=== PATIENT | female | born 1985 | race Caucasian/White ===

== ENCOUNTER 2016-10-25 16:28 | Emergency (ER) | payer OTHER ==
[~2016-10-25] VITALS: Ht 162.6 cm; Wt 85.6 kg
[~2016-10-25 16:28] MED LIST: AMPH20TA2 PO; GABA-112 PO; PRM625 PO; PRT40 PO; RXC5 PO; VTMD PO
[2016-10-25 16:47] VITALS: TEMP 36.8; Ht 162.6 cm; Wt 85.6 kg
--- NOTE | 2016-10-25 17:01 | EMERGENCY ROOM VISIT NOTE ---
History Report prepared by Deepak: Lesley Nix Under the Supervision of: Dr. Erin De La Vega M.D. First contact with patient: 16:56 Chief Complaint: RESPIRATORY PROBLEMS Stated Complaint: HARD TIME WALKING, HURT TO BREATH, CHILLS Nursing Triage Summary: PT VERBALIZES YESTERDAY SHE DEVELOPED A RASH ALL OVER HER FACE, CHILLS, LETHARGY, GENERALIZED PAIN, PAIN 9/10 SPECIFICALLY IN HER HIPS AND HER HEAD, CP AND SOB. PT WENT TO [facility] YESTERDAY AND HAD BLOODWORK DONE WITH RESULTING ELEVATED LIVER ENZYMES, WAS TOLD TO F/U WITH PCP. PT ALSO HAD CT AND ULTRASOUND BUT IS UNSURE WHAT SPECIFICALLY THE IMAGING WAS FOR, BUT WAS TOLD ALL RESULTS WERE NEGATIVE. PT PRESENTS TODAY BECAUSE SHE IS UNABLE TO GET APPT WITH PCP AND FEELS WORSE. History of Present Illness The patient is a 31 year old female who presents to the Emergency Room with complaints of constant shortness of breath beginning a few days prior to arrival. The patient was seen at [facility] yesterday and had a CT and Ultrasound done. She notes that she broke out in a rash on her face. She is also experiencing chest pain, chills, and body aches. The patient denies chance of . Source of History: patient Onset: few days ACUTE CARE CLINICAL NURSE SPECIALIST Position: other (global) Quality: other (shortness of breath) Timing: constant Associated Symptoms: + chest pain, + chills Note: Patient has been experiencing body aches. Review of Systems See HPI for pertinent positives & negatives. A total of 10 systems reviewed and were otherwise negative. Past Medical & Surgical Medical Problems: (1) Acute gastroenteritis (2) Attention-Deficit Hyperactivity Disorder, Unspecified Type (3) Demyelinating Disease Of Central Nervous System, Unspecified (4) Hypothyroidism Nos (5) Tobacco Use Disorder Family History Diabetes mellitus FH: cancer Hypertension Social History Smoking Status: Never Smoker Alcohol Use: none Drug Use: none Marital Status: single Housing Status: lives with family Occupation Status: employed Current/Historical Medications Scheduled Amphetamine-Dextroamphetamine 20MG (Adderall 20MG), 20 MG PO BID Bupropion HCl (Bupropion HCl Sr), 150 MG PO DAILY Doxycycline Monohydrate (Monodox), 100 MG PO BID Estrogens, Conjugated (Premarin), 0.625 MG PO QAM Ondasetron Odt (Zofran Odt), 4 MG SL Q6H Scheduled PRN Docusate Sodium (Docqlace), 100 MG PO BID PRN for Constipation Allergies Coded Allergies: Acetaminophen (Verified Allergy, Unknown, SWELLING, 08/13/16) Codeine (Verified Allergy, Unknown, SWELLING, 08/13/16) Morphine (Verified Allergy, Unknown, swelling, 08/13/16) Physical Exam Vital Signs Date Time Temp Pulse Resp B/P Pulse Ox O2 Delivery O2 Flow Rate FiO2 10/25/16 20:28 89 18 122/71 98 Room Air 10/25/16 18:31 86 16 124/92 99 Room Air 10/25/16 16:47 99 Room Air 10/25/16 16:47 36.8 98 18 128/84 99 Room Air Physical Exam CONSTITUTIONAL: Appears mildly uncomfortable. HEENT: No icterus, moist mucous membranes NECK: No meningismus, trachea is midline. CARDIOVASCULAR: Regular rate, normal perfusion RESPIRATORY: Unlabored breathing. Clear to auscultation. GASTROINTESTINAL: Non-tender GENITOURINARY: No flank tenderness MUSCULOSKELETAL: Full range of motion NEUROLOGIC: No acute gross focal deficits. PSYCHIATRIC: Normal affect SKIN: Normal for ethnicity. Mild acne to face. Medical Decision & Procedures Laboratory Results 10/25/16 17:50 Red Blood Count 4.48, Mean Corpuscular Volume 90.8, Mean Corpuscular Hemoglobin 31.9, Mean Corpuscular Hemoglobin Concent 35.1, Mean Platelet Volume 9.7, Neutrophils (%) (Auto) 75.6, Lymphocytes (%) (Auto) 16.5, Monocytes (%) (Auto) 6.3, Eosinophils (%) (Auto) 1.2, Basophils (%) (Auto) 0.2, Neutrophils # (Auto) 4.60, Lymphocytes # (Auto) 1.00, Monocytes # (Auto) 0.38, Eosinophils # (Auto) 0.07, Basophils # (Auto) 0.01 10/25/16 17:50 Test 10/25/16 17:50 10/25/16 19:00 White Blood Count 6.07 K/uL (4.8-10.8) Red Blood Count 4.48 M/uL (4.2-5.4) Hemoglobin 14.3 g/dL (12.0-16.0) Hematocrit 40.7 % (37-47) Mean Corpuscular Volume 90.8 fL (80-100) Mean Corpuscular Hemoglobin 31.9 pg (25-34) Mean Corpuscular Hemoglobin Concent 35.1 g/dl (32-36) Platelet Count 238 K/uL (130-400) Mean Platelet Volume 9.7 fL (7.4-10.4) Neutrophils (%) (Auto) 75.6 % Lymphocytes (%) (Auto) 16.5 % Monocytes (%) (Auto) 6.3 % Eosinophils (%) (Auto) 1.2 % Basophils (%) (Auto) 0.2 % Neutrophils # (Auto) 4.60 K/uL (1.4-6.5) Lymphocytes # (Auto) 1.00 K/uL (1.2-3.4) Monocytes # (Auto) 0.38 K/uL (0.11-0.59) Eosinophils # (Auto) 0.07 K/uL (0-0.5) Basophils # (Auto) 0.01 K/uL (0-0.2) RDW Standard Deviation 42.6 fL (36.4-46.3) RDW Coefficient of Variation 12.9 % (11.5-14.5) Immature Granulocyte % (Auto) 0.2 % Immature Granulocyte # (Auto) 0.01 K/uL (0.00-0.02) D-Dimer 340 ug/L FEU (0-500) Anion Gap 8.0 mmol/L (3-11) Est Creatinine Clear Calc Drug Dose 105.6 ml/min Estimated GFR () 111.4 Estimated GFR (Non- 96.1 BUN/Creatinine Ratio 10.7 (10-20) Calcium Level 8.9 mg/dl (8.5-10.1) Total Creatine Kinase 46 U/L (26-192) C-Reactive Protein 0.70 mg/dl (0-0.29) Lipase 177 U/L (73-393) Procalcitonin < 0.05 ng/mL (0-0.5) Human Chorionic Gonadotropin, Qual NEG (NEG) Lyme Disease IgG Antibody NEG (NEG) Lyme Disease IgM Antibody NEG (NEG) Urine Color YELLOW Urine Appearance CLOUDY (CLEAR) Urine pH 8.0 (4.5-7.5) Urine Specific [place] 1.009 (1.000-1.030) Urine Protein NEG (NEG) Urine Glucose (UA) NEG (NEG) Urine Ketones NEG (NEG) Urine Occult Blood NEG (NEG) Urine Nitrite NEG (NEG) Urine Bilirubin NEG (NEG) Urine Urobilinogen NEG (NEG) Urine Leukocyte Esterase NEG (NEG) Urine WBC (Auto) 0 /hpf (0-5) Urine RBC (Auto) 0-4 /hpf (0-4) Urine Hyaline Casts (Auto) 0 /lpf (0-5) Urine Epithelial Cells (Auto) 5-10 /lpf (0-5) Urine Bacteria (Auto) NEG (NEG) Urine Opiates Screen POS (NEG) Urine Methadone, Qualitative NEG (NEG) Urine Barbiturates NEG (NEG) Urine Phencyclidine (PCP) Level NEG (NEG) Ur Amphetamine/Methamphetamine NEG (NEG) MDMA (Ecstasy) Screen NEG (NEG) Urine Benzodiazepines Screen NEG (NEG) Urine Cocaine Metabolite NEG (NEG) Urine Marijuana (THC) NEG (NEG) Labs reviewed by ED physician. Medications Administered Medications (Trade) Dose Ordered Sig/Antoni Route Start Time Stop Time Status Last Admin Dose Admin Doxycycline Hyclate (Vibramycin Cap) 100 mg NOW STAT PO 10/25/16 17:48 10/25/16 17:49 DC 10/25/16 18:23 100 MG Acetaminophen (Tylenol Tab) 1,000 mg NOW STAT PO 10/25/16 19:42 10/25/16 19:45 DC 10/25/16 19:56 1,000 MG Ketorolac Tromethamine (Toradol Inj) 60 mg NOW STAT IM 10/25/16 19:42 10/25/16 19:45 DC 10/25/16 19:56 60 MG Ondansetron HCl (Zofran Odt) 4 mg NOW STAT PO 10/25/16 19:42 10/25/16 19:45 DC 10/25/16 19:56 4 MG ECG Indication: SOB/dyspnea Rate (beats per minute): 93 Rhythm: normal sinus Findings: no ectopy, other (normal axis, normal ST segments) ED Course 1658: Past medical records reviewed. The patient was evaluated in room C9. A complete history and physical examination was performed. 1747: Vibramycin Cap 100 mg PO. 1941: Zofran Odt 4 mg PO, Toradol Inj 60 mg IM, Tylenol Tab 1,000 mg PO, Zofran Tab 4 mg PO, Zofran ODT 4 mg Home pack 1 homepack PO. 2051: Upon reexamination the patient is hemodynamically stable. I discussed results and treatment plan with the patient. She verbalizes agreement and understanding. The patient is ready for discharge. Medical Decision Differential diagnoses include but are not limited to; systemic inflammatory process, myocelitis, acne, dysrhythmia, PE. 31-year-old presented to the emergency department for evaluation of diffuse myalgias and arthralgias all over her body without known diagnosis despite previous evaluation with physician. She also like a rash of her bilateral face evaluated which consistent with either acne or possibly MRSA less likely. Review of systems negative for focal complaints although demeanor interactions may be concerning for potential substance abuse. Urine was noted positive for opiates and patient denies any issues along these lines and declines any assistance with these concerns. She was given a Zofran prescription for nausea and doxycycline to treat the facial rash. She understands to follow-up with her doctor. Impression Primary Impression: Facial rash Scribe Attestation The scribe's documentation has been prepared under my direction and personally reviewed by me in its entirety. I confirm that the note above accurately reflects all work, treatment, procedures, and medical decision making performed by me. Departure Information Dispostion Home / Self-Care Prescriptions Ondasetron Odt (ZOFRAN ODT) 4 Mg Tab 4 MG SL Q6H for Nausea, #20 TAB Prov: Erin De La Vega MD 10/25/16 Doxycycline Monohydrate (Monodox) 100 Mg Cap 100 MG PO BID for 14 Days, #28 CAP Prov: Erin De La Vega MD 10/25/16 Referrals No Doctor, Assigned (PCP) Forms HOME CARE DOCUMENTATION FORM, IMPORTANT VISIT INFORMATION, WORK / SCHOOL INSTRUCTIONS Patient Instructions Acne, My [facility]
[2016-10-25] MEDS ORDERED: DOXYCYCLINE HYCLATE 100 MG CAP PO STA (17:48)
[2016-10-25 17:59] LABS: BASO % 0.2 %; BASO ABS # 0.01 K/uL (0-0.2); COMPLETE YES; EOS % 1.2 %; HEMATOCRIT 40.7 % (37-47); IG% 0.2 %; LYMPH % 16.5 %; MEAN CELL VOLUME 90.8 fL (80-100); MEAN CORPUSCULAR HEMOGLOBIN 31.9 pg (25-34); MEAN CORPUSCULAR HGB CONC 35.1 g/dl (32-36); MEAN PLATELET VOLUME 9.7 fL (7.4-10.4); MONO % 6.3 %; NEUT % 75.6 %; PLATELET COUNT 238 K/uL (130-400); RED BLOOD COUNT 4.48 M/uL (4.2-5.4); WHITE BLOOD COUNT 6.07 K/uL (4.8-10.8)
[2016-10-25] MEDS ORDERED: DOCU100C22 PO (18:03)
[2016-10-25] MEDS ORDERED: WLLSR150 PO (18:03)
[2016-10-25 18:19] LABS: BUN/CREATININE RATIO 10.7 (10-20); C-REACTIVE PROTEIN 0.7 mg/dl (0-0.29); CALCIUM 8.9 mg/dl (8.5-10.1); CREATININE 0.81 mg/dl (0.60-1.20); POTASSIUM 3.4 mmol/L (3.5-5.1)
[2016-10-25 18:27] LABS: PREG INTERNAL NEGATIVE QC NEG CLEAR BACKGROUND; PREG INTERNAL POSITIVE QC POS CONTROL LINE
[2016-10-25 18:51] LABS: PROCALCITONIN < 0.05 ng/mL (0-0.5)
[2016-10-25 19:16] LABS: URINE APPEARANCE CLOUDY (CLEAR); URINE BILIRUBIN NEG (NEG); URINE COLOR YELLOW; URINE NITRITE NEG (NEG); URINE SPECIFIC GRAVITY 1.009 (1.000-1.030); UROBILINOGEN NEG (NEG)
[2016-10-25 19:21] LABS: MANUAL MICROSCOPIC REQUIRED? NO; REVIEW REQ? NO
[2016-10-25 19:24] LABS: BENZODIAZEPINE, URINE NEG (NEG); COCAINE,URINE NEG (NEG); PHENCYCLIDINE, URINE NEG (NEG)
[2016-10-25] MEDS ORDERED: ONDANSETRON 4MG OD TAB PO STA (19:42)
[2016-10-25] MEDS ORDERED: KETOROLAC TROMETHAMINE 30 MG/ML VIAL IM STA (19:42)
[2016-10-25] MEDS ORDERED: ACETAMINOPHEN 500 MG TAB PO STA (19:42)
[2016-10-25 19:43] LABS: LYME DISEASE AB IGG NEG (NEG); LYME DISEASE AB IGM NEG (NEG)
[2016-10-25] MEDS ORDERED: ONDANSETRON HOME PACK 4MG OD TAB PO ONE (19:45)
[2016-10-25] MEDS ORDERED: ONDANSETRON 4 MG TAB PO PRN (19:45)
[2016-10-25 20:28] VITALS: BP 122/71; PULSE 89; O2SAT 98
[2016-10-25] MEDS ORDERED: DOXY100C76 PO (20:52)
[2016-10-25] MEDS ORDERED: ONDA4TAB10 SL (20:52)
[2016-10-28 01:09] LABS: COD UR NEGATIVE NG/ML (CUTOFF=50); HYDROCOD UR 132 NG/ML (CUTOFF=50); HYDROMOR UR 67 NG/ML (CUTOFF=50); MORPHINE UR NEGATIVE NG/ML (CUTOFF=50); NORHYDROCODONE CONF UR 669 NG/ML (CUTOFF=50); OXYMORPH UR NEGATIVE NG/ML (CUTOFF=50)
== END 2016-10-25 21:01 | disposition home or self-care (01) ==
LOC: C.EDB 16:30 → C.EDC 21:01
DX: R21 Rash and other nonspecific skin eruption (principal); E03.9 Hypothyroidism, unspecified; F90.9 Attention-deficit hyperactivity disorder, unspecified type; F17.200 Nicotine dependence, unspecified, uncomplicated; Z87.19 Personal history of other diseases of the digestive system; Z79.899 Other long term (current) drug therapy; Z88.5 Allergy status to narcotic agent; Z88.6 Allergy status to analgesic agent; Z83.3 Family history of diabetes mellitus; Z80.9 Family history of malignant neoplasm, unspecified; Z82.49 Family history of ischemic heart disease and other diseases of the circulatory system

== ENCOUNTER 2017-03-09 20:43 | Emergency (ER) | payer OTHER ==
[~2017-03-09] VITALS: Ht 162.6 cm; Wt 77.0 kg
[~2017-03-09 20:43] MED LIST changes: +DOCU100C22 PO; -GABA-112 PO; +ONDA4TAB10 SL; -PRT40 PO; -RXC5 PO; -VTMD PO; +WLLSR150 PO
[2017-03-09 20:46] VITALS: Ht 162.6 cm; Wt 77.0 kg
[2017-03-09] MEDS ORDERED: KETOROLAC TROMETHAMINE 30 MG/ML VIAL IV STA (21:25)
[2017-03-09] MEDS ORDERED: METOCLOPRAMIDE HCL INJ 5 MG/ML 2 ML VIAL IV STA (21:25)
[2017-03-09] MEDS ORDERED: SODIUM CHLORIDE 0.9% 1000ML 1,000 ML IV STA ×2 (21:25)
[2017-03-09] MEDS ORDERED: DiphenhydrAMINE HCL 50 MG/ML VIAL IV STA (21:25)
[2017-03-09 21:32] LABS: BASO % 0.4 %; BASO ABS # 0.04 K/uL (0-0.2); COMPLETE YES; EOS % 0.5 %; HEMATOCRIT 42.8 % (37-47); IG% 0.4 %; LYMPH % 25.4 %; LYMPH ABS # 2.87 K/uL (1.2-3.4); MEAN CORPUSCULAR HEMOGLOBIN 31.8 pg (25-34); MEAN CORPUSCULAR HGB CONC 34.6 g/dl (32-36); MEAN PLATELET VOLUME 9.4 fL (7.4-10.4); MONO % 5.3 %; PLATELET COUNT 270 K/uL (130-400); RED BLOOD COUNT 4.65 M/uL (4.2-5.4); WHITE BLOOD COUNT 11.32 K/uL (4.8-10.8)
[2017-03-09 21:48] LABS: BUN/CREATININE RATIO 15.6 (10-20); CREATININE 1.1 mg/dl (0.60-1.20); POTASSIUM 3.4 mmol/L (3.5-5.1)
[2017-03-09 21:54] LABS: SULFASALICYLIC ACID NEG (NEG); URINE SPECIFIC GRAVITY 1.016 (1.000-1.030)
[2017-03-09 22:02] LABS: MANUAL MICROSCOPIC REQUIRED? YES; URINE APPEARANCE CLOUDY (CLEAR); ZZUR CULT IF INDIC CLEAN CATCH YES
[2017-03-09 22:03] LABS: URINE COLOR ORANGE
[2017-03-09 22:06] LABS: REVIEW REQ? YES
[2017-03-09 22:08] LABS: URINE RBC >30 /hpf (0-4)
[2017-03-09 22:26] LABS: URINE AMORPHOUS SEDIMENT PRESENT (NONE PRSENT); URINE BACTERIA 2+ (NEG); URINE WBC >30 /hpf (0-5)
--- NOTE | 2017-03-09 22:27 | DIAGNOSTIC IMAGING REPORT ---
CT SCAN OF THE ABDOMEN AND PELVIS WITHOUT CONTRAST CLINICAL HISTORY: Right flank pain COMPARISON STUDY: 08/02/2016 TECHNIQUE: CT scan of the abdomen and pelvis was performed from the lung bases to the proximal femurs. Images are reviewed in the axial, sagittal, and coronal planes. IV contrast was not administered for this examination. CT DOSE: 1415.03 mGy.cm FINDINGS: Lower chest: There is a stable 2.5 mm left lower lobe pulmonary nodule. Liver: The unenhanced liver is normal in size, contour, and attenuation. There is no intrahepatic biliary ductal dilatation. Gallbladder: Surgically absent Spleen: Normal in size and attenuation. Pancreas: Unremarkable. Adrenal glands: Unremarkable. Kidneys: No renal, ureteral, or bladder calculi are visualized. Bowel: There are no transition zones indicate bowel obstruction. By history the appendix is surgically absent. There is no acute diverticulitis. Peritoneum: There is no intraperitoneal free air or abdominal ascites. Vasculature: The abdominal aorta is normal in course and caliber. Adenopathy: None. Pelvic viscera: The uterus appears surgically absent. Skeletal structures: No destructive osseous lesions are seen. IMPRESSION: 1. No renal, ureteral, or bladder calculi identified 2. No evidence of bowel obstruction. No evidence of free air 3. Surgically absent gallbladder and appendix and uterus. 4. No acute inflammatory changes Electronically signed by: Aman Lisa M.D. 03/09/2017 10:26 PM Dictated Date/Time: 03/09/2017 10:22 PM
[2017-03-09] MEDS ORDERED: FENTANYL CITRATE INJ 50 MCG/1 ML 2 ML VIAL IV STA (22:30)
[2017-03-09] MEDS ORDERED: CEFTRIAXONE SOD INJ 1 GM ADDVIAL IV STA (22:30)
[2017-03-09 22:37] LABS: CALCIUM 8.7 mg/dl (8.5-10.1)
[2017-03-09] MEDS ORDERED: SULF800T23 PO (23:36)
[2017-03-09] MEDS ORDERED: ONDA4TAB10 SL (23:36)
[2017-03-09] MEDS ORDERED: PHEN-876 PO (23:36)
[2017-03-10] MEDS ORDERED: FENTANYL CITRATE INJ 50 MCG/1 ML 2 ML VIAL IV STA (00:01)
[2017-03-10 00:15] VITALS: BP 114/76; PULSE 87; TEMP 36.5; O2SAT 97
[2017-03-10] MEDS ORDERED: PHENAZOPYRIDINE HOME PACK 200 MG VIAL PO ONE (00:15)
[2017-03-10] MEDS ORDERED: SEPTRA DS HOME PACK 1 EA VIAL PO ONE (00:15)
[2017-03-10] MEDS ORDERED: ONDANSETRON HOME PACK 4MG OD TAB PO ONE (00:15)
--- NOTE | 2017-03-10 03:42 | EMERGENCY ROOM VISIT NOTE ---
History First contact with patient: 21:20 Chief Complaint: FLANK PAIN Stated Complaint: AND PAIN, CANT VOID History of Present Illness The patient is a 31 year old female who presents to the Emergency Room with complaints of right flank pain that radiates to her groin with urinary symptoms for the past day. Patient denies chest pain, dyspnea, fever, chills, vomiting, diarrhea, vaginal itching or discharge. She is tolerate by mouth fluids and food. Pain 5 out of 10. Nothing makes it better or worse. Review of Systems See HPI for pertinent positives & negatives. A total of 10 systems reviewed and were otherwise negative. Past Medical/Surgical History Medical Problems: (1) Acute gastroenteritis (2) Attention-Deficit Hyperactivity Disorder, Unspecified Type (3) Demyelinating Disease Of Central Nervous System, Unspecified (4) Hypothyroidism Nos (5) Tobacco Use Disorder Family History Diabetes mellitus FH: cancer Hypertension Social History Smoking Status: Never Smoker Alcohol Use: none Drug Use: none Marital Status: single Housing Status: lives with family Occupation Status: employed Current/Historical Medications Scheduled Amphetamine-Dextroamphetamine 20MG (Adderall 20MG), 20 MG PO BID Ondasetron Odt (Zofran Odt), 4 MG SL Q6H Phenazopyridine HCl (Pyridium), 200 MG PO TID Sulfa/Trimethoprim (Bactrim Ds 800MG/160MG), 1 TAB PO BID Allergies Coded Allergies: Acetaminophen (Verified Allergy, Unknown, SWELLING, 08/13/16) Codeine (Verified Allergy, Unknown, SWELLING, 08/13/16) Morphine (Verified Allergy, Unknown, swelling, 08/13/16) Physical Exam Vital Signs Date Time Temp Pulse Resp B/P (MAP) Pulse Ox O2 Delivery O2 Flow Rate FiO2 03/10/17 00:15 36.5 87 16 114/76 97 03/09/17 22:21 80 16 110/67 96 Room Air 03/09/17 20:46 36.5 95 18 143/100 95 Room Air Pain Rating (0-10): 4.0 Physical Exam VITALS: Vitals are noted on the nurse's note and reviewed by myself. Vital signs stable. GENERAL: Pleasant female, in no acute distress, nondiaphoretic, well-developed well-nourished. SKIN: The skin was without rashes, erythema, edema, or bruising. There is no tenting of the skin. Capillary reflex less than 2 seconds. HEAD: Normocephalic atraumatic. EARS: External auditory canals clear, tympanic membranes pearly martinez without erythema or effusion bilaterally. EYES: Pupils equal round and reactive to light and accommodation. Conjunctivae without injection, sclerae without icterus. Extraocular movements intact. NOSE: Patent, turbinates without inflammation or discharge. MOUTH: Mucous membranes moist. Pharynx without erythema or exudate. Uvula midline. Airway patent. Tongue does not deviate. NECK: Supple without nuchal rigidity. No lymphadenopathy. No thyromegaly. Cervical spine is nontender. No JVD. HEART: Regular rate and rhythm without murmurs gallops or rubs. LUNGS: Clear to auscultation bilaterally without wheezes, rales or rhonchi. No dullness to percussion. No retractions or accessory muscle use. ABDOMEN: Positive bowel sounds x 4. Normal tympanic percussion. Soft, nontender, without masses or organomegaly. Pérez sign negative. No guarding or rebound tenderness. Right CVA tenderness MUSCULOSKELETAL: No muscle atrophy, erythema, or edema noted. NEURO: Patient was alert and oriented to person place and time. Normal sensation to light and sharp touch. No focal neurological deficits. Medical Decision & Procedures Laboratory Results 03/09/17 21:18 Red Blood Count 4.65, Mean Corpuscular Volume 92.0, Mean Corpuscular Hemoglobin 31.8, Mean Corpuscular Hemoglobin Concent 34.6, Mean Platelet Volume 9.4, Neutrophils (%) (Auto) 68.0, Lymphocytes (%) (Auto) 25.4, Monocytes (%) (Auto) 5.3, Eosinophils (%) (Auto) 0.5, Basophils (%) (Auto) 0.4, Neutrophils # (Auto) 7.71, Lymphocytes # (Auto) 2.87, Monocytes # (Auto) 0.60, Eosinophils # (Auto) 0.06, Basophils # (Auto) 0.04 03/09/17 21:18 Test 03/09/17 21:10 03/09/17 21:18 Urine Color ORANGE Urine Appearance CLOUDY (CLEAR) Urine pH (4.5-7.5) Urine Specific [place] 1.016 (1.000-1.030) Urine Protein NEG (NEG) Urine Glucose (UA) (NEG) Urine Ketones (NEG) Urine Occult Blood (NEG) Urine Nitrite (NEG) Urine Bilirubin (NEG) Urine Urobilinogen (NEG) Urine Leukocyte Esterase (NEG) Urine RBC >30 /hpf (0-4) Urine WBC >30 /hpf (0-5) Urine Epithelial Cells >30 /lpf (0-5) Urine Amorphous Sediment PRESENT (NONE PRSENT) Urine Bacteria 2+ (NEG) White Blood Count 11.32 K/uL (4.8-10.8) Red Blood Count 4.65 M/uL (4.2-5.4) Hemoglobin 14.8 g/dL (12.0-16.0) Hematocrit 42.8 % (37-47) Mean Corpuscular Volume 92.0 fL (80-100) Mean Corpuscular Hemoglobin 31.8 pg (25-34) Mean Corpuscular Hemoglobin Concent 34.6 g/dl (32-36) Platelet Count 270 K/uL (130-400) Mean Platelet Volume 9.4 fL (7.4-10.4) Neutrophils (%) (Auto) 68.0 % Lymphocytes (%) (Auto) 25.4 % Monocytes (%) (Auto) 5.3 % Eosinophils (%) (Auto) 0.5 % Basophils (%) (Auto) 0.4 % Neutrophils # (Auto) 7.71 K/uL (1.4-6.5) Lymphocytes # (Auto) 2.87 K/uL (1.2-3.4) Monocytes # (Auto) 0.60 K/uL (0.11-0.59) Eosinophils # (Auto) 0.06 K/uL (0-0.5) Basophils # (Auto) 0.04 K/uL (0-0.2) RDW Standard Deviation 46.2 fL (36.4-46.3) RDW Coefficient of Variation 13.7 % (11.5-14.5) Immature Granulocyte % (Auto) 0.4 % Immature Granulocyte # (Auto) 0.04 K/uL (0.00-0.02) Anion Gap 11.0 mmol/L (3-11) Est Creatinine Clear Calc Drug Dose 73.8 ml/min Estimated GFR () 76.9 Estimated GFR (Non- 66.4 BUN/Creatinine Ratio 15.6 (10-20) Calcium Level 8.7 mg/dl (8.5-10.1) Medications Administered Medications (Trade) Dose Ordered Sig/Antoni Route Start Time Stop Time Status Last Admin Dose Admin Sodium Chloride 1,000 ml @ 999 mls/hr Q1H1M STAT IV 03/09/17 21:25 03/09/17 22:25 DC 03/09/17 21:38 999 MLS/HR Sodium Chloride 1,000 ml @ 125 mls/hr Q8H STAT IV 03/09/17 21:25 03/10/17 01:28 DC 03/09/17 23:04 125 MLS/HR Ketorolac Tromethamine (Toradol Inj) 30 mg NOW STAT IV 03/09/17 21:25 03/09/17 21:27 DC 03/09/17 21:39 30 MG Metoclopramide HCl (Reglan Inj) 10 mg NOW STAT IV 03/09/17 21:25 03/09/17 21:27 DC 03/09/17 21:39 10 MG Diphenhydramine HCl (Benadryl Inj) 25 mg NOW STAT IV 03/09/17 21:25 03/09/17 21:27 DC 03/09/17 21:39 25 MG Ceftriaxone Sodium (Rocephin Inj) 1 gm NOW STAT IV 03/09/17 22:30 03/09/17 22:32 DC 03/09/17 23:04 1 GM Fentanyl Citrate (Fentanyl Inj) 50 mcg NOW STAT IV 03/09/17 22:30 03/09/17 22:32 DC 03/09/17 23:04 50 MCG Ondansetron HCl (ZOFRAN ODT 4MG Home Pack) 1 homepack UD ONCE PO 03/10/17 00:15 03/10/17 00:16 DC 03/10/17 00:14 1 HOMEPACK Trimethoprim/ Sulfamethoxazole (Sulfameth/ Trimeth Ds 800/ 160MG Home Pack) 1 homepack UD ONCE PO 03/10/17 00:15 03/10/17 00:16 DC 03/10/17 00:14 1 HOMEPACK Phenazopyridine HCl (Phenazopyridine HCl 200MG Home Pack) 1 homepack UD ONCE PO 03/10/17 00:15 03/10/17 00:16 DC 03/10/17 00:14 1 HOMEPACK Fentanyl Citrate (Fentanyl Inj) 50 mcg NOW STAT IV 03/10/17 00:01 03/10/17 00:03 DC 03/10/17 00:04 50 MCG ED Course Prior records/ancillary studies reviewed. Triage Nursing notes reviewed. Additional history obtained from the family. The patient's history was concerning for right flank pain. Differential diagnosis: Etiologies such as renal colic, appendicitis, diverticulitis, mesenteric ischemia, aortic pathology, infections, inflammatory bowel disease, PUD, biliary pathology, UTI, as well as others were entertained. Physical examination findings: As above. ER treatment provided: Rocephin, IV fluids, Toradol On reassessment the patient felt better. Diagnostic interpretation by me: The labs revealed leukocytosis. Urinalysis revealed signs of infection and sent for culture. Imaging studies: CT of the abdomen and pelvis as above. It appears that the patient has pyelonephritis. Patient was started on antibiotics. She was afebrile without an acute abdomen. No vomiting. She was not nauseous. She is tolerating fluids. She felt comfortable going home. She is advised take medications as directed, drink plenty of fluids and follow-up family care in a few days or here in the ER sooner for high fevers, vomiting, abdominal pain, worsening signs or symptoms or as needed. By the evaluation outlined above emergent etiologies such as appendicitis, diverticulitis, mesenteric ischemia, aortic pathology, inflammatory bowel disease, PUD, biliary pathology, as well as others were deemed relatively unlikely. The pt informed about the findings as listed above. All questions were answered and pleased with the treatment. Return instructions were outlined and the patient was discharged in stable condition. Outpatient prescription management: Bactrim, Pyridium, Zofran Referral: The patient was referred back to their primary care physician for follow-up in 2 to 3 days for a recheck of the current condition. Case reviewed with my attending Medical Decision As above Impression Primary Impression: Pyelonephritis Departure Information Dispostion Home / Self-Care Condition FAIR Prescriptions Ondasetron Odt (ZOFRAN ODT) 4 Mg Tab 4 MG SL Q6H, #6 TAB Prov: Belkis Rodriguez .PJ 03/09/17 Phenazopyridine HCl (Pyridium) 200 Mg Tab 200 MG PO TID for 2 Days, #6 TAB Prov: Belkis Rodriguez .PJ 03/09/17 Sulfa/Trimethoprim (Bactrim Ds 800MG/160MG) Tab 1 TAB PO BID for 7 Days, #14 TAB Prov: Belkis Rodriguez ., PJ 03/09/17 Referrals No Doctor, Assigned (PCP) Forms HOME CARE DOCUMENTATION FORM, IMPORTANT VISIT INFORMATION Patient Instructions Pyelonephritis - [facility], My [facility] Additional Instructions DO NOT drive, drink alcohol, operate machinery, or perform dangerous activities today. You were given medications in the ER that can affect your ability to safely function or operate a vehicle. Trimethoprim-Sulfamethoxazole(Bactrim DS): Take one pill twice daily for 7 days for your urine infection. All antibiotics can cause diarrhea. If this occurs and you feel worse or it does not resolve in 1-2 days follow up with your doctor or return to the Emergency Department as this could be signs of serious underlying problems. Any medication can cause an allergic reaction, stop the pills immediately and return to the ER for rash, hives, breathing difficulties, or swelling. Pyridium 200mg: Take one pill three times daily as needed for urinary discomfort. This medication will turn your urine orange. This is normal and nothing to be concerned about. Zofran 4 mg: Take one every six hours as needed for nausea. Avoid alcohol, operating machinery or dangerous equipment, working on ladders or roofs, DRIVING , or situations where being under the influence may be dangerous. Ibuprofen(Motrin, Advil) may be used for fever or pain. Use 600mg every six hours as needed. Take with food. Avoid using more than 2400mg in a 24 hour period. Do not use 2400mg per day for more than three consecutive days without physician direction. Prolonged inappropriate use can lead to stomach upset or ulcers. (AND/OR) Acetaminophen(Tylenol) may be used for fever or pain. Use 1000mg every six hours as needed. Avoid using more than 3000mg in a 24 hour period. Rest and drink plenty of fluids as tolerated. Slow sips of water or sports drinks are recommended instead of large amounts all at once. Continue current medications. Once your stomach is settled start with a clear liquid diet (jello, soup broth, etc.) and then advance as tolerated. You should avoid full, heavy meals for about 24 hrs from the time your symptoms resolved. Return to the ER immediately for worsening or persistent abdominal/back pain, vomiting, fevers, worsening of your condition, or as needed. Follow up with your primary physician within 2-3 days for a recheck of the current condition.
[2017-07-17] MEDS ORDERED: OXYC1TAB3 PO (07:50)
== END 2017-03-10 00:15 | disposition home or self-care (01) ==
LOC: C.EDB 20:44
DX: N12 Tubulo-interstitial nephritis, not specified as acute or chronic (principal); F90.9 Attention-deficit hyperactivity disorder, unspecified type; E03.9 Hypothyroidism, unspecified; G37.9 Demyelinating disease of central nervous system, unspecified; Z83.3 Family history of diabetes mellitus; Z80.9 Family history of malignant neoplasm, unspecified; Z82.49 Family history of ischemic heart disease and other diseases of the circulatory system; Z79.899 Other long term (current) drug therapy

== ENCOUNTER 2017-04-15 13:49 | Emergency (ER) | payer OTHER ==
[~2017-04-15] VITALS: Ht 162.6 cm; Wt 88.0 kg
[~2017-04-15 13:49] MED LIST changes: -DOCU100C22 PO; -PRM625 PO; -WLLSR150 PO
[2017-04-15 13:56] VITALS: TEMP 36.7; Ht 162.6 cm; Wt 88.0 kg
[2017-04-15] MEDS ORDERED: OXYCODONE HCL IR 5 MG TAB (IMMEDIATE RELEASE) PO STA (14:13)
--- NOTE | 2017-04-15 14:18 | EMERGENCY ROOM VISIT NOTE ---
History First contact with patient: 13:59 Chief Complaint: LEG PAIN,LEG INJURY Stated Complaint: RT LEG PAIN-SUDDEN [id number] POSITIVE History of Present Illness The patient is a 31 year old female who presents to the Emergency Room via private vehicle with complaints of "right leg pain, sudden onset, d-dimer positive". The patient states that yesterday she developed what she describes as a "charley horse" in the back of her right leg. She states that it felt like she was punched in the thigh. She states that the more she walks on it the more her leg hurts. Today well on orientation she states that while ascending a flight of steps she develops shortness of breath. She states that typically she is not short of breath with such simple activities. She also states that her right leg gave out on her while climbing the steps. She notes that she also has midsternal chest pain that began last night. She states that she is concerned because she was seen in a different hospital and had a positive d-dimer and believe she had a CAT scan that was negative, however with the new onset shortness of breath and her sister passing away from a pulmonary embolism she is concerned. She states that she was encouraged to be evaluated and went to urgent care who referred her here. She denies chance of . She has had a hysterectomy. Review of Systems A complete 10-point Review of Systems was discussed with the patient, with pertinent positives and negatives listed in the History of Present Illness. All remaining Review of Systems questions can be considered negative unless otherwise specified. Past Medical/Surgical History Medical Problems: (1) Acute gastroenteritis (2) Attention-Deficit Hyperactivity Disorder, Unspecified Type (3) Demyelinating Disease Of Central Nervous System, Unspecified (4) Hypothyroidism Nos (5) Tobacco Use Disorder Family History Diabetes mellitus FH: cancer Hypertension Social History Smoking Status: Never Smoker Alcohol Use: none Drug Use: none Marital Status: single Housing Status: lives with family Occupation Status: employed Current/Historical Medications Scheduled Amphetamine-Dextroamphetamine 20MG (Adderall 20MG), 20 MG PO BID Allergies Coded Allergies: Acetaminophen (Verified Allergy, Unknown, SWELLING, 04/15/17) Codeine (Verified Allergy, Unknown, SWELLING, 04/15/17) Morphine (Verified Allergy, Unknown, swelling, 04/15/17) Physical Exam Vital Signs Date Time Temp Pulse Resp B/P (MAP) Pulse Ox O2 Delivery O2 Flow Rate FiO2 7/18/17 14:59 66 04/15/17 14:56 100 Room Air 04/15/17 14:54 61 20 123/91 99 04/15/17 13:56 36.7 73 18 147/101 98 Room Air Physical Exam VITAL SIGNS - Vital signs and nursing notes were reviewed. Patient is afebrile , hypertensive at 147/101, non-tachycardic and is saturating well on room air at 98%. GENERAL -31-year-old female appearing her stated age who is in no acute distress. Communicates well with provider and answers questions appropriately. SKIN - Without rashes. The skin and integument overlying the right leg is unremarkable. HEAD - NC/AT. EYES - PERRL with EOMI bilaterally. Sclera anicteric. Palpebral conjunctiva pink and moist with no injection noted. EARS - No deformities of external structures noted on gross examination bilaterally. No pain elicited with palpation of the tragus bilaterally. External auditory canals without discharge or otorrhea. Tympanic membranes pearly martinez without retraction or bulging. Slight erythema in the ear canals. No fluid or purulent material visualized behind the TM. Handle of malleus, umbo , cone of light, pars tensa/flaccid all easily visualized. NOSE - Midline and without cyanosis. No epistaxis or purulent drainage noted. Septum midline without deviation or septal hematoma noted. MOUTH/OROPHARYNX - Without perioral cyanosis. Buccal mucosa pink and moist and without leukoplakia. Tongue midline with equal elevation of palate bilaterally. No tonsillar hypertrophy, erythema, or exudates noted. [] dentition noted. LUNGS - Chest wall symmetric without accessory muscle use, intercostals retractions, or central cyanosis. Normal vesicular breath sounds CTA B/L. No wheezes, rales, or rhonchi appreciated. CARDIAC - RRR with S1/S2. No murmur, rubs, or gallops appreciated. ABDOMEN - Abdominal contour without pulsations or visible masses. BS normoactive all four quadrants. No tenderness, palpable masses, hepatosplenomegaly, or ascites noted. EXTREMITIES - No clubbing or peripheral cyanosis. No pretibial edema present. She is neurovascularly intact in the right lower extremity. There is no tenderness to palpation overlying the right leg. No calf tenderness. +5/5 strength noted in UE/LE bilaterally. NEUROLOGIC - Cranial nerves II through XII grossly intact. Sensory intact to light touch throughout. PSYCH - A&O.. Pt is very pleasant and interacts well with examiner. Medical Decision & Procedures ER Provider Diagnostic Interpretation: CHEST ONE VIEW PORTABLE CLINICAL HISTORY: 31 years-old Female presenting with Dyspnea. TECHNIQUE: Portable upright AP view of the chest was obtained. COMPARISON: 08/05/2016. FINDINGS: Cardiomediastinal silhouette normal. Apparent nodular opacity at the right lung base, which may be vascular in etiology. No other focal infiltrate. Pleural spaces clear. Osseous structures and upper abdomen normal. IMPRESSION: 1. No convincing evidence of acute cardiopulmonary disease. 2. Apparent nodular opacity at the right lung base may be vascular in origin. This could be further evaluated with CT if clinically warranted. Electronically signed by: Hany Pope M.D. 04/15/2017 2:35 PM Dictated Date/Time: 04/15/2017 2:32 PM ULTRASOUND RIGHT VENOUS DOPP LOWER EXT UNILAT CLINICAL HISTORY: Right leg pain COMPARISON STUDY: No previous studies for comparison. FINDINGS: Real-time and color flow Doppler imaging were performed. Flow was seen within the femoral, popliteal and calf veins with no intraluminal thrombus demonstrated. The saphenous vein is patent. IMPRESSION: No evidence of right lower extremity DVT. Electronically signed by: Aman Lisa M.D. 04/15/2017 4:02 PM Dictated Date/Time: 04/15/2017 4:02 PM Laboratory Results 04/15/17 14:45 Red Blood Count 4.34, Mean Corpuscular Volume 93.5, Mean Corpuscular Hemoglobin 32.5, Mean Corpuscular Hemoglobin Concent 34.7, Mean Platelet Volume 9.7, Neutrophils (%) (Auto) 53.9, Lymphocytes (%) (Auto) 39.4, Monocytes (%) (Auto) 4.3, Eosinophils (%) (Auto) 1.8, Basophils (%) (Auto) 0.3, Neutrophils # (Auto) 3.89, Lymphocytes # (Auto) 2.84, Monocytes # (Auto) 0.31, Eosinophils # (Auto) 0.13, Basophils # (Auto) 0.02 04/15/17 14:45 Test 04/15/17 14:45 04/15/17 14:53 White Blood Count 7.21 K/uL (4.8-10.8) Red Blood Count 4.34 M/uL (4.2-5.4) Hemoglobin 14.1 g/dL (12.0-16.0) Hematocrit 40.6 % (37-47) Mean Corpuscular Volume 93.5 fL (80-100) Mean Corpuscular Hemoglobin 32.5 pg (25-34) Mean Corpuscular Hemoglobin Concent 34.7 g/dl (32-36) Platelet Count 270 K/uL (130-400) Mean Platelet Volume 9.7 fL (7.4-10.4) Neutrophils (%) (Auto) 53.9 % Lymphocytes (%) (Auto) 39.4 % Monocytes (%) (Auto) 4.3 % Eosinophils (%) (Auto) 1.8 % Basophils (%) (Auto) 0.3 % Neutrophils # (Auto) 3.89 K/uL (1.4-6.5) Lymphocytes # (Auto) 2.84 K/uL (1.2-3.4) Monocytes # (Auto) 0.31 K/uL (0.11-0.59) Eosinophils # (Auto) 0.13 K/uL (0-0.5) Basophils # (Auto) 0.02 K/uL (0-0.2) RDW Standard Deviation 44.2 fL (36.4-46.3) RDW Coefficient of Variation 12.8 % (11.5-14.5) Immature Granulocyte % (Auto) 0.3 % Immature Granulocyte # (Auto) 0.02 K/uL (0.00-0.02) Prothrombin Time 10.2 SECONDS (9.0-12.0) Prothromb Time International Ratio 1.0 (0.9-1.1) Activated Partial Thromboplast Time 26.4 SECONDS (21.0-31.0) Partial Thromboplastin Ratio 1.0 Anion Gap 6.0 mmol/L (3-11) Est Creatinine Clear Calc Drug Dose 100.9 ml/min Estimated GFR () 103.6 Estimated GFR (Non- 89.4 BUN/Creatinine Ratio 12.5 (10-20) Calcium Level 9.0 mg/dl (8.5-10.1) Total Bilirubin 0.3 mg/dl (0.2-1) Aspartate Amino Transf (AST/SGOT) 13 U/L (15-37) Alanine Aminotransferase (ALT/SGPT) 54 U/L (12-78) Alkaline Phosphatase 166 U/L (45-117) Total Creatine Kinase 59 U/L (26-192) Total Protein 6.9 gm/dl (6.4-8.2) Albumin 3.7 gm/dl (3.4-5.0) Globulin 3.2 gm/dl (2.5-4.0) Albumin/Globulin Ratio 1.2 (0.9-2) Bedside D-Dimer 370 ng/mlFEU (0-450) Bedside Troponin I < 0.030 ng/ml (0-0.045) Medications Administered Medications (Trade) Dose Ordered Sig/Antoni Route Start Time Stop Time Status Last Admin Dose Admin Oxycodone HCl (Roxicodone Immediate Rel Tab) 5 mg NOW STAT PO 04/15/17 14:13 04/15/17 14:15 DC 04/15/17 14:35 5 MG Medical Decision Patient was seen and evaluated as above. After obtaining a thorough history and physical examination IV access was initiated and the above workup was performed. Patient presented to us today with leg pain, shortness of breath, chest pain that began yesterday, exertional intolerance, lightheadedness and pain in her shoulder. She is concerned because her sister has from a pulmonary embolism. She states that she had a d-dimer done previously and a CT scan of the chest. At this time the workup will focus on emergent etiologies. Ultrasound reveals no DVT. D-dimer is negative. Chest x-ray reveals nodule, she is aware of this and is to follow-up. I believe that the CT scan can be performed in the outpatient setting. I did include this in her discharge instructions. Her lab work reveals no concerning leukocytosis or anemia. There is no coagulopathy. D-dimer is normal. No evidence of kidney or liver failure. Alkaline phosphatase is high at 166. Troponin is negative times one. Sodium is low at 3.3. Her vital signs are stable. She was given 1 OxyIR for her pain. She noted that she could take this pain medication without difficulty. At this time she appears stable for outpatient management, and the case was discussed with my attending. Patient is a follow-up visit, or return here with worsening. She was educated upon worrisome symptoms in which to return, had questions answered prior to discharge, and was discharged home in good condition. In evaluation treatment this patient following differential diagnoses were entertained: NE, PE, costochondritis, anxiety, DVT, among others. Impression Primary Impression: Leg pain, right Additional Impression: Hypokalemia Departure Information Dispostion Home / Self-Care Condition GOOD Referrals No Doctor, Assigned (PCP) Patient Instructions Hypokalemia Geoff, Inocencia [facility] Additional Instructions You have been treated in the Emergency Department for leg Pain, chest pain and shortness of breath. You have received pain medicine in the emergency department which impairs your ability to operate a vehicle. It is illegal for you to drive after receiving these medicines. For pain control, you can use the following [id number] medicines if not allergic and able to tolerate: - Regular strength (325mg/tab) Tylenol (acetaminophen) 2 tabs every 4-6 hours as needed. Do not exceed 12 tablets in a 24 hour period. Avoid taking more than 3 grams (3000 mg) of Tylenol per day. This includes any other sources of acetaminophen you may take on a regular basis. - Regular strength (200 mg/tab) Advil (ibuprofen) 1-2 tabs every 4-6 hours as needed. Do not exceed a dose of 3200 mg per day. If this is a recent injury (<24 hrs), ice can be applied to the area of pain for the first 3 days to help decrease pain and inflammation. Ice massages can be performed by freezing water in a paper cup, peeling back the cup to expose the ice and then massaging over the affected area. Please follow-up with your family doctor regarding today's visit. Please follow -up for your lab results here today, your chest x-ray, as well as your low potassium. Please refer to the attached handout. I have listed your x-ray results below. CHEST ONE VIEW PORTABLE CLINICAL HISTORY: 31 years-old Female presenting with Dyspnea. TECHNIQUE: Portable upright AP view of the chest was obtained. COMPARISON: 08/05/2016. FINDINGS: Cardiomediastinal silhouette normal. Apparent nodular opacity at the right lung base, which may be vascular in etiology. No other focal infiltrate. Pleural spaces clear. Osseous structures and upper abdomen normal. IMPRESSION: 1. No convincing evidence of acute cardiopulmonary disease. 2. Apparent nodular opacity at the right lung base may be vascular in origin. This could be further evaluated with CT if clinically warranted. Return to the Emergency Department if your current symptoms worsen despite treatment course outlined above. Thank you for your time. Problem Qualifiers
--- NOTE | 2017-04-15 14:36 | DIAGNOSTIC IMAGING REPORT ---
CHEST ONE VIEW PORTABLE CLINICAL HISTORY: 31 years-old Female presenting with Dyspnea. TECHNIQUE: Portable upright AP view of the chest was obtained. COMPARISON: 08/05/2016. FINDINGS: Cardiomediastinal silhouette normal. Apparent nodular opacity at the right lung base, which may be vascular in etiology. No other focal infiltrate. Pleural spaces clear. Osseous structures and upper abdomen normal. IMPRESSION: 1. No convincing evidence of acute cardiopulmonary disease. 2. Apparent nodular opacity at the right lung base may be vascular in origin. This could be further evaluated with CT if clinically warranted. Electronically signed by: Hany Pope M.D. 04/15/2017 2:35 PM Dictated Date/Time: 04/15/2017 2:32 PM
[2017-04-15 14:56] VITALS: O2SAT 100
[2017-04-15 15:00] LABS: BASO % 0.3 %; BASO ABS # 0.02 K/uL (0-0.2); COMPLETE YES; EOS % 1.8 %; HEMATOCRIT 40.6 % (37-47); IG% 0.3 %; LYMPH % 39.4 %; LYMPH ABS # 2.84 K/uL (1.2-3.4); MEAN CELL VOLUME 93.5 fL (80-100); MEAN CORPUSCULAR HEMOGLOBIN 32.5 pg (25-34); MEAN CORPUSCULAR HGB CONC 34.7 g/dl (32-36); MEAN PLATELET VOLUME 9.7 fL (7.4-10.4); MONO % 4.3 %; NEUT % 53.9 %; PLATELET COUNT 270 K/uL (130-400); RED BLOOD COUNT 4.34 M/uL (4.2-5.4); WHITE BLOOD COUNT 7.21 K/uL (4.8-10.8)
[2017-04-15 15:10] LABS: PROTHROMBIN TIME (PATIENT) 10.2 SECONDS (9.0-12.0)
[2017-04-15 15:12] LABS: POINT OF CARE TROPONIN I < 0.030 ng/ml (0-0.045)
[2017-04-15 15:24] LABS: BUN/CREATININE RATIO 12.5 (10-20); CREATININE 0.86 mg/dl (0.60-1.20); POTASSIUM 3.3 mmol/L (3.5-5.1)
[2017-04-15 15:27] LABS: ALB/GLOB RATIO 1.2 (0.9-2)
--- NOTE | 2017-04-15 16:03 | DIAGNOSTIC IMAGING REPORT ---
ULTRASOUND RIGHT VENOUS DOPP LOWER EXT UNILAT CLINICAL HISTORY: Right leg pain COMPARISON STUDY: No previous studies for comparison. FINDINGS: Real-time and color flow Doppler imaging were performed. Flow was seen within the femoral, popliteal and calf veins with no intraluminal thrombus demonstrated. The saphenous vein is patent. IMPRESSION: No evidence of right lower extremity DVT. Electronically signed by: Aman Lisa M.D. 04/15/2017 4:02 PM Dictated Date/Time: 04/15/2017 4:02 PM
[2017-04-15 16:41] VITALS: BP 124/86; PULSE 82; O2SAT 98
== END 2017-04-15 16:42 | disposition home or self-care (01) ==
LOC: C.EDB 13:52
DX: M79.604 Pain in right leg (principal); E87.6 Hypokalemia; R79.1 Abnormal coagulation profile

== ENCOUNTER 2017-05-26 09:52 | Emergency (ER) | payer SELFPAY ==
[~2017-05-26 09:52] MED LIST changes: -ONDA4TAB10 SL
[2017-05-26 10:01] VITALS: TEMP 36.6; Ht 162.6 cm
[2017-05-26] MEDS ORDERED: HYDR-5688 PO (11:09)
[2017-05-26 11:17] VITALS: BP 134/94; PULSE 69; O2SAT 100
--- NOTE | 2017-05-27 06:07 | EMERGENCY ROOM VISIT NOTE ---
ED Visit Note First contact with patient: 10:47 CHIEF COMPLAINT: Toothache. HISTORY OF PRESENT ILLNESS: Ms. Leung is a 31-year-old white female who ambulates into the ED complaining of dental pain. She reports a progressive dental pain for 3-4 days over the right maxilla. The pain is now steady and severe and radiates to the face. She has been using ibuprofen but has had moderate relief of her discomfort but tonight the pain became severe. Currently she is complaining of pain in the area of teeth 4 and 5. She rates her discomfort 7/10. Her.is pain does radiate through the end of the hand into the right ear. Her pain worsens with palpation, chewing and hot and cold foods. Se has not identified any alleviating factors related to the pain. She reports she is having chills but no salvador fever. Denies any associated sweats, facial swelling, sore throat, difficulty swallowing, voice changes, drooling, hearing changes, ear drainage. REVIEW OF SYSTEMS: As noted above in History of Present Illness. 8 body systems were reviewed with this patient and found to be negative unless noted above otherwise. PMH: Attention deficit disorder, status post hysterectomy, appendectomy, tonsillectomy, adenoidectomy and cholecystectomy.. CURRENT MEDICATION: Adderall. ALLERGIES TO MEDICATION: Morphine. SOCIAL HISTORY: Patient is currently employed; she feels safe in her home environment; she denies tobacco use; she admits to alcohol use. PHYSICAL EXAM: Vital Signs: Date Time Temp Pulse Resp B/P (MAP) Pulse Ox O2 Delivery O2 Flow Rate FiO2 05/26/17 11:17 69 16 134/94 100 05/26/17 10:11 67 16 115/77 95 05/26/17 10:01 36.6 82 20 130/88 98 Room Air General: 31 year-old white female in moderate distress due to pain, nontoxic appearing, afebrile and hemodynamically stable. Neurological: Awake, alert and oriented to person, place and time. Answering questions appropriately and following commands. Skin: Warm, dry and pink. HEENT: Atraumatic and normocephalic. External ears are nontender. Auditory canals are pink and patent. Tympanic membranes were normal with a normal reflex. No facial swelling or erythema. Oral cavity is moist and pink. Airway is patent. Uvula is midline and no abscesses are seen. Speech is normal. No intraoral trauma is noted. Chelsy putnam has multiple decaying teeth. Tooth 4 and 5 have been previously filled. Tooth 5 has a posterior crown element missing and there appears to be exposure of the dentine. The local gingiva is mildly erythematous and edematous. I do not palpate any abscesses. No cervical or submandibular lymphadenopathy. ED COURSE: Patient is assessed as noted above. Patient is educated about she findings and instructed on her treatment plan; she verbalizes understanding and agreement with this plan. CLINIC IMPRESSION: Dental abscess. DISPOSITION: Patient discharged home in stable condition; prior to departure she was reassessed and subjectively reported she was feeling the same. PLAN: Use 500 mg of Pen-Vee K 4 times a day for 10 days. Use 600 mg of ibuprofen every 6 hours as needed for pain; take with food and stop for stomach pain or indigestion. 3 hours after ibuprofen use rate your pain: for pain rated 1-3 use 650 mg of acetaminophen for pain rated 4-7 use one Ivanhoe tablet for pain rated 8-10 use 2 Ivanhoe tablets Mouth clean with brushing, flossing and gargling with saltwater 4-5 times a day. Cover the affected teeth with dental wax as we discussed. Use a liquid/mechanical soft diet. Try to follow-up with Dr. Freitas, dentist, . Return to the ED for worsening/uncontrolled pain, uncontrolled fevers, worsening swelling or any new/concerning symptoms.
== END 2017-05-26 11:17 | disposition home or self-care (01) ==
LOC: C.EDB 09:54 → C.EDA 11:17
DX: K04.7 Periapical abscess without sinus (principal); F90.9 Attention-deficit hyperactivity disorder, unspecified type; Z90.49 Acquired absence of other specified parts of digestive tract; Z90.710 Acquired absence of both cervix and uterus; Z79.899 Other long term (current) drug therapy

== ENCOUNTER 2017-06-17 08:59 | Emergency (ER) | payer SELFPAY ==
[~2017-06-17] VITALS: Ht 162.6 cm; Wt 89.6 kg
[~2017-06-17 08:59] MED LIST changes: +HYDR-5688 PO
[2017-06-17 09:02] VITALS: TEMP 36.5; Ht 162.6 cm; Wt 89.6 kg
[2017-06-17] MEDS ORDERED: SODIUM CHLORIDE 0.9% 1000ML 1,000 ML IV STA (09:20)
[2017-06-17] MEDS ORDERED: KETOROLAC TROMETHAMINE 30 MG/ML VIAL IV STA (09:20)
[2017-06-17] MEDS ORDERED: ONDANSETRON INJ 2 MG/ML 2 ML VIAL IV STA (09:20)
[2017-06-17] MEDS ORDERED: AMPICILLIN/SULBACTAM SOD INJ 3,000 MG in SODIUM CHLORIDE 0.9% 100ML 100 ML IV ONE (09:30)
[2017-06-17 10:01] LABS: BASO % 0.4 %; BASO ABS # 0.02 K/uL (0-0.2); COMPLETE YES; EOS % 2.1 %; HEMATOCRIT 39.4 % (37-47); IG% 0.2 %; LYMPH ABS # 2.24 K/uL (1.2-3.4); MEAN CELL VOLUME 91.4 fL (80-100); MEAN CORPUSCULAR HEMOGLOBIN 32.3 pg (25-34); MEAN CORPUSCULAR HGB CONC 35.3 g/dl (32-36); MEAN PLATELET VOLUME 9.7 fL (7.4-10.4); MONO % 8.4 %; NEUT % 46.9 %; PLATELET COUNT 230 K/uL (130-400); RED BLOOD COUNT 4.31 M/uL (4.2-5.4); WHITE BLOOD COUNT 5.33 K/uL (4.8-10.8)
[2017-06-17 10:14] LABS: ALT/SGPT 62 U/L (12-78); BLOOD UREA NITROGEN 12 mg/dl (7-18); BUN/CREATININE RATIO 16.1 (10-20); CALCIUM 8.9 mg/dl (8.5-10.1); CARBON DIOXIDE 27 mmol/L (21-32); CHLORIDE 106 mmol/L (98-107); CREATININE 0.72 mg/dl (0.60-1.20); GLUCOSE 75 mg/dl (70-99); POTASSIUM 3.6 mmol/L (3.5-5.1); SODIUM 140 mmol/L (136-145)
[2017-06-17 10:17] LABS: ALKALINE PHOSPHATASE 153 U/L (45-117); AST/SGOT 39 U/L (15-37)
[2017-06-17] MEDS ORDERED: TRAM-10 PO (10:36)
[2017-06-17] MEDS ORDERED: PENI-82 PO (10:36)
[2017-06-17 10:47] VITALS: BP 126/86; PULSE 68; O2SAT 100
--- NOTE | 2017-06-17 16:20 | EMERGENCY ROOM VISIT NOTE ---
History First contact with patient: 09:14 Chief Complaint: DENTAL PAIN Stated Complaint: BROKEN TOOTH,JAW AND SHOULDER PAIN,FEVER,VOMITING Nursing Triage Summary: Pt states she broke an upper left tooth. Called Dr and they want $120 because I don't have insurance. N/V. Swelling in upper left dental area. Taking tylenol and ibuprofen for fever/pain. Fever this am 102. History of Present Illness The patient is a 31 year old female who presents to the Emergency Room with complaints of left upper dental pain. The patient reports that she has seen Dr. Freitas recently for for a right dental extraction. The patient reports that she owes $120, and reports that they will not see her until her bill is paid. The patient has not noticed any left facial swelling. She has noticed a metallic taste in the mouth. She did have a fever last night with nausea and vomiting. She denies any difficulty swallowing or throat tightness. She denies any other recent upper respiratory infection. She rates her discomfort a 5 out of 10. Review of Systems HEENT: Denies dizziness, visual problems, hearing loss, tinnitus. Denies difficulty swallowing or oral lesions. PULMONARY: Denies cough, shortness of breath, sputum production or hemoptysis. CARDIOVASCULAR: Denies chest pain, palpitations, dyspnea on exertion, orthopnea or peripheral edema. GASTROINTESTINAL: Denies diarrhea, constipation, nausea, vomiting, or abdominal pain. GENITOURINARY: Denies dysuria, frequency, urgency or nocturia. NEUROLOGIC: Denies history of epilepsy, CVA, TIA or chronic headaches. MUSCULOSKELETAL: Denies history of joint tenderness/swelling. SKIN: Denies rashes or lesions. PSYCHIATRIC: Denies history of depression or mental illness. ENDOCRINE: Denies history of diabetes or thyroid disorders. Past Medical/Surgical History Medical Problems: (1) Acute gastroenteritis (2) Attention-Deficit Hyperactivity Disorder, Unspecified Type (3) Demyelinating Disease Of Central Nervous System, Unspecified (4) Hypothyroidism Nos (5) Tobacco Use Disorder Family History Diabetes mellitus FH: cancer Hypertension Social History Smoking Status: Never Smoker Alcohol Use: none Drug Use: none Marital Status: single Housing Status: lives with family Occupation Status: employed Current/Historical Medications Scheduled Amphetamine-Dextroamphetamine 20MG (Adderall 20MG), 20 MG PO BID Penicillin V Potassium (Veetids), 500 MG PO QID Scheduled PRN Tramadol (Ultram), 1 TAB PO Q4H PRN for Pain Physical Exam Vital Signs Date Time Temp Pulse Resp B/P (MAP) Pulse Ox O2 Delivery O2 Flow Rate FiO2 06/17/17 10:47 68 18 126/86 100 06/17/17 09:02 36.5 67 16 135/93 99 Pain Rating (0-10): 0 Physical Exam CONSTITUTIONAL: Healthy and well nourished. Alert and oriented X 3 with positive affect. HEENT: Normocephalic, atraumatic. Pupils equal, round and reactive. No facial edema noted. OROPHARYNX: No obvious gingival erythema, fluctuance or pointing. The patient has several left maxillary teeth that are tender to palpation and percussion. NECK: Full active range of motion without discomfort. RESPIRATORY: Clear to auscultation bilaterally with no wheezing, crackles, rhonchi or stridor. CARDIOVASCULAR: Regular rate and rhythm with no murmurs, rubs or gallops. INTEGUMENTARY: No rash or other significant dermatologic conditions noted. NEUROLOGIC: Facial sensations are intact. Medical Decision & Procedures Laboratory Results 06/17/17 09:38 Red Blood Count 4.31, Mean Corpuscular Volume 91.4, Mean Corpuscular Hemoglobin 32.3, Mean Corpuscular Hemoglobin Concent 35.3, Mean Platelet Volume 9.7, Neutrophils (%) (Auto) 46.9, Lymphocytes (%) (Auto) 42.0, Monocytes (%) (Auto) 8.4, Eosinophils (%) (Auto) 2.1, Basophils (%) (Auto) 0.4, Neutrophils # (Auto) 2.50, Lymphocytes # (Auto) 2.24, Monocytes # (Auto) 0.45, Eosinophils # (Auto) 0.11, Basophils # (Auto) 0.02 06/17/17 09:38 Test 06/17/17 09:38 White Blood Count 5.33 K/uL (4.8-10.8) Red Blood Count 4.31 M/uL (4.2-5.4) Hemoglobin 13.9 g/dL (12.0-16.0) Hematocrit 39.4 % (37-47) Mean Corpuscular Volume 91.4 fL (80-100) Mean Corpuscular Hemoglobin 32.3 pg (25-34) Mean Corpuscular Hemoglobin Concent 35.3 g/dl (32-36) Platelet Count 230 K/uL (130-400) Mean Platelet Volume 9.7 fL (7.4-10.4) Neutrophils (%) (Auto) 46.9 % Lymphocytes (%) (Auto) 42.0 % Monocytes (%) (Auto) 8.4 % Eosinophils (%) (Auto) 2.1 % Basophils (%) (Auto) 0.4 % Neutrophils # (Auto) 2.50 K/uL (1.4-6.5) Lymphocytes # (Auto) 2.24 K/uL (1.2-3.4) Monocytes # (Auto) 0.45 K/uL (0.11-0.59) Eosinophils # (Auto) 0.11 K/uL (0-0.5) Basophils # (Auto) 0.02 K/uL (0-0.2) RDW Standard Deviation 40.6 fL (36.4-46.3) RDW Coefficient of Variation 12.0 % (11.5-14.5) Immature Granulocyte % (Auto) 0.2 % Immature Granulocyte # (Auto) 0.01 K/uL (0.00-0.02) Anion Gap 7.0 mmol/L (3-11) Est Creatinine Clear Calc Drug Dose 121.6 ml/min Estimated GFR () 128.4 Estimated GFR (Non- 110.8 BUN/Creatinine Ratio 16.1 (10-20) Calcium Level 8.9 mg/dl (8.5-10.1) Total Bilirubin 0.1 mg/dl (0.2-1) Direct Bilirubin < 0.1 mg/dl (0-0.2) Aspartate Amino Transf (AST/SGOT) 39 U/L (15-37) Alanine Aminotransferase (ALT/SGPT) 62 U/L (12-78) Alkaline Phosphatase 153 U/L (45-117) Total Protein 6.7 gm/dl (6.4-8.2) Albumin 3.4 gm/dl (3.4-5.0) Lipase 124 U/L (73-393) The above labs were reviewed and were grossly normal. Medications Administered Medications (Trade) Dose Ordered Sig/Antoni Route Start Time Stop Time Status Last Admin Dose Admin Sodium Chloride 1,000 ml @ 999 mls/hr Q1H1M STAT IV 06/17/17 09:20 9/19/17 10:20 DC 06/17/17 09:20 999 MLS/HR Ampicillin Sodium/ Sulbactam Sodium 3000 mg/Sodium Chloride 108 ml @ 200 mls/hr ONE ONCE IV 06/17/17 09:30 06/17/17 10:02 DC 06/17/17 09:36 200 MLS/HR Ketorolac Tromethamine (Toradol Inj) 30 mg NOW STAT IV 06/17/17 09:20 06/17/17 09:22 DC 06/17/17 09:36 30 MG Ondansetron HCl (Zofran Inj) 4 mg NOW STAT IV 06/17/17 09:20 06/17/17 09:22 DC 06/17/17 09:36 4 MG ED Course Patient history and physical exam were performed. Nurse's notes were reviewed. IV access was established, and labs were drawn. The patient was administered IV Unasyn and Toradol. She was also hydrated with a liter normal saline. The patient did report significant reduction of her discomfort. Review of the [place] Prescription Drug Monitoring Program shows that the patient has received several opioid prescriptions in the past. She is also currently being prescribed Adderall. She has received 22 prescriptions from 7 different providers, and fill these prescriptions at 5 different pharmacies. The patient was provided a prescription for Pen-Vee K at her request, along with Ultram 50 mg, dispensed #15 with no refills. The patient was advised that she would need to follow-up with her dentist or family doctor for further management. She was advised that the emergency department does not provide dental services, referrals or chronic dental pain management. She was instructed to return for any progressively worsening infection. The patient was happy with plan of care, voiced understanding of all discharge instructions , and rated her discomfort a 2 out of 10 at the conclusion of my exam. Medical Decision [place] Drug Monitoring Program Search Results: patient reviewed within database, see additional documentation Medication Reconcilliation Current Medication List: was personally reviewed by me Blood Pressure Screening Patient's blood pressure: Normal blood pressure Impression Primary Impression: Dental infection Departure Information Dispostion Home / Self-Care Condition GOOD Prescriptions Tramadol (Ultram) 50 Mg Tab 1 TAB PO Q4H Y for Pain, #30 TAB For Initial Treatment Prov: Suhas Andrew PA 06/17/17 Penicillin V Potassium (Veetids) 500 Mg Tab 500 MG PO QID, #40 TAB Prov: Suhas Andrew PA 06/17/17 Referrals Lloyd Weinstein D.M.D Forms HOME CARE DOCUMENTATION FORM, IMPORTANT VISIT INFORMATION Patient Instructions My [facility] Additional Instructions Complete all Pen-Vee K antibiotics as prescribed. Take Phenergan as prescribed and as needed for nausea. Ibuprofen 600 mg every 6 hours for pain. Ultram if needed for worse pain. Continue follow-up with your dentist for further reevaluation and management.
== END 2017-06-17 10:49 | disposition home or self-care (01) ==
LOC: C.EDB 09:00 → C.EDA 10:49
DX: K04.7 Periapical abscess without sinus (principal); F90.9 Attention-deficit hyperactivity disorder, unspecified type; Z83.3 Family history of diabetes mellitus; Z82.49 Family history of ischemic heart disease and other diseases of the circulatory system; Z79.899 Other long term (current) drug therapy

== ENCOUNTER 2017-07-06 11:22 | Emergency (ER) | payer OTHER ==
[~2017-07-06] VITALS: Ht 162.6 cm; Wt 88.9 kg
[~2017-07-06 11:22] MED LIST changes: -HYDR-5688 PO; +PENI-82 PO; +TRAM-10 PO
[2017-07-06 11:26] VITALS: TEMP 36.9; Ht 162.6 cm; Wt 88.9 kg
[2017-07-06] MEDS ORDERED: ONDANSETRON INJ 2 MG/ML 2 ML VIAL IV STA (12:14)
[2017-07-06] MEDS ORDERED: MoRPHine SULFATE 4 MG/ML 1 ML CARP\\VIAL IV STA (12:14)
[2017-07-06] MEDS ORDERED: SODIUM CHLORIDE 0.9% 1000ML 1,000 ML IV STA (12:14)
--- NOTE | 2017-07-06 12:20 | EMERGENCY ROOM VISIT NOTE ---
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 Patient Instructions Bruises Contusions, ED Abrasion, ED Sling, ED UTI Cystitis Female, Humerus Fx, My [facility] Additional Instructions Please follow up with your primary care physician in the next 1-3 days as well as with orthopedics, Dr. Salas, tomorrow at 3pm, for re-evaluation X-ray showed a fracture to the tubercle of your right humerus. Your urine demonstrated a urinary tract infection. Otherwise, your exam, EKG, xrays, CT scans, and lab results did not show signs of an emergent condition at this time. Take antibiotic as directed. Ibuprofen every 8 hours scheduled for pain as directed. Oxycodone for breakthrough pain. Return to the emergency department for worsening symptoms as described in the accompanying instructions. Problem Qualifiers
[2017-07-06] MEDS ORDERED: FENTANYL CITRATE INJ 50 MCG/1 ML 2 ML VIAL IV STA ×2 (12:26→13:22)
[2017-07-06 12:40] LABS: BASO % 0.2 %; BASO ABS # 0.02 K/uL (0-0.2); COMPLETE YES; EOS % 0.4 %; HEMATOCRIT 39.6 % (37-47); IG% 0.3 %; LYMPH % 19.8 %; LYMPH ABS # 1.93 K/uL (1.2-3.4); MEAN CORPUSCULAR HEMOGLOBIN 31.7 pg (25-34); MEAN CORPUSCULAR HGB CONC 35.6 g/dl (32-36); MEAN PLATELET VOLUME 9.9 fL (7.4-10.4); MONO % 9.6 %; NEUT % 69.7 %; PLATELET COUNT 282 K/uL (130-400); RED BLOOD COUNT 4.45 M/uL (4.2-5.4); WHITE BLOOD COUNT 9.76 K/uL (4.8-10.8)
[2017-07-06 12:43] LABS: PREG INTERNAL NEGATIVE QC NEG CLEAR BACKGROUND; PREG INTERNAL POSITIVE QC POS CONTROL LINE
[2017-07-06 12:51] LABS: BUN/CREATININE RATIO 8.9 (10-20); CREATININE 0.75 mg/dl (0.60-1.20); POTASSIUM 3.9 mmol/L (3.5-5.1)
[2017-07-06 12:58] LABS: URINE APPEARANCE CLEAR (CLEAR); URINE BILIRUBIN NEG (NEG); URINE COLOR YELLOW; URINE EPITHELIAL CELL AUTO >30 /lpf (0-5); URINE NITRITE POS (NEG); URINE PH 8.5 (4.5-7.5); URINE SPECIFIC GRAVITY 1.012 (1.000-1.030); UROBILINOGEN NEG (NEG)
[2017-07-06 12:59] LABS: ALB/GLOB RATIO 1.1 (0.9-2)
[2017-07-06 12:59] LABS: MANUAL MICROSCOPIC REQUIRED? NO; REVIEW REQ? NO
[2017-07-06] MEDS ORDERED: OPTIRAY 320 IV PRN (13:15)
--- NOTE | 2017-07-06 13:28 | DIAGNOSTIC IMAGING REPORT ---
HEAD WITHOUT CONTRAST (CT), FACIAL BONES-MXILLOFAC WITHOUT CLINICAL HISTORY: 31 years-old Female presenting with pain-trauma. TECHNIQUE: Multidetector CT imaging of the head and face was performed without the use of intravenous contrast. IV contrast: None. A dose lowering technique was used consistent with the principles of ALARA (as low as reasonably achievable). COMPARISON: 08/06/2016. CT DOSE (mGy.cm): The estimated cumulative dose is 1124.[address] face. FINDINGS: Manufacturer'S Service Representative topogram: Unremarkable. CT HEAD: Ventricles and sulci normal in size. Brain parenchyma normal in appearance with preserved martinez-white differentiation. No mass effect or midline shift. No hemorrhage or acute territorial infarct. No extra-axial fluid collection. Paranasal sinuses and mastoid air cells clear. Calvarium intact. Minimal superficial soft tissue contusion over the frontal region. CT face: Paranasal sinuses and mastoid air cells essentially clear. Temporal mandibular joints intact. No mandibular fracture. Orbits intact. Upper cervical spine normal. Soft tissues of the face normal. IMPRESSION: 1. No acute intracranial pathology. 2. No acute osseous injury of the face. Electronically signed by: Hany Pope M.D. 07/06/2017 1:27 PM Dictated Date/Time: 07/06/2017 1:15 PM
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
--- NOTE | 2017-07-06 13:44 | DIAGNOSTIC IMAGING REPORT ---
CERVICAL SPINE W/O CLINICAL HISTORY: 31 years-old Female presenting with pain-trauma. TECHNIQUE: Multidetector CT of the cervical spine was performed without the use of intravenous contrast. IV contrast: None. A dose lowering technique was used consistent with the principles of ALARA (as low as reasonably achievable). COMPARISON: None. CT DOSE (mGy.cm): The estimated cumulative dose is 1124.88 mGy.cm. FINDINGS: Online Content Coordinator topogram: Unremarkable. Normal cervical lordosis. Vertebral bodies maintain normal height and alignment. No acute fracture subluxation. Paraspinal soft tissues normal. Lung apices clear. IMPRESSION: No acute osseous injury of the cervical spine. Electronically signed by: Hany Pope M.D. 07/06/2017 1:43 PM Dictated Date/Time: 07/06/2017 1:41 PM
--- NOTE | 2017-07-06 13:54 | DIAGNOSTIC IMAGING REPORT ---
ABD/PELVIS IV CONTRAST ONLY CLINICAL HISTORY: 31 years-old Female presenting with pain-trauma. TECHNIQUE: Multidetector CT of the abdomen and pelvis was performed after the administration of intravenous contrast. IV contrast: 93 mL of Optiray 320. A dose lowering technique was used consistent with the principles of ALARA (as low as reasonably achievable). COMPARISON: 03/09/2017. CT DOSE (mGy.cm): The estimated cumulative dose is 1992.[address] lumbar spine. FINDINGS: Stummel Selector topogram: Cholecystectomy clips noted. Lung bases: Minimal dependent changes likely atelectasis. Normal heart size. No pericardial or pleural effusion. Liver: Normal morphology. No liver lesion. Patent hepatic vasculature. Biliary: Intrahepatic biliary ductal dilatation likely a reservoir effect in the post cholecystectomy state. Gallbladder surgically absent. Pancreas: Normal. Spleen: Normal. Adrenal glands: Subcentimeter nodule at the inferior aspect of the medial limb of the left adrenal gland unchanged, previously consistent with benign adenoma. Right adrenal gland normal. Kidneys and ureters: Bilateral extrarenal pelvises. No hydronephrosis. Subcentimeter well-defined hypodensity at the lower pole of the right kidney likely cysts but too small to characterize. Otherwise parenchyma normal. Normal ureters. Bladder: Normal. Pelvic organs: Uterus surgically absent. No adnexal masses. Bowel: Normal. No bowel obstruction. Peritoneal cavity: No free fluid or intraperitoneal gas. Lymph nodes: No enlarged lymph nodes in the abdomen or pelvis. Vasculature: Aorta and IVC patent and normal in caliber. Abdominal wall: Mild skin thickening over the left proximal thigh. Minimal infiltration of the subcutaneous tissue in the ventral infraumbilical abdominal wall. Musculoskeletal: Normal. IMPRESSION: 1. No acute intra-abdominal injury. 2. Suspected abrasion over the proximal left thigh and possible minimal subcutaneous contusion in the lower anterior abdominal wall. Electronically signed by: Hany Pope M.D. 07/06/2017 1:53 PM Dictated Date/Time: 07/06/2017 1:44 PM
--- NOTE | 2017-07-06 14:25 | DIAGNOSTIC IMAGING REPORT ---
THORACIC SPINE WITHOUT, LUMBAR SPINE WITHOUT CLINICAL HISTORY: 31 years-old Female presenting with pain-trauma. TECHNIQUE: Multidetector CT of the thoracic and lumbar spine was performed without the use of intravenous contrast. IV contrast: None. A dose lowering technique was used consistent with the principles of ALARA (as low as reasonably achievable). COMPARISON: CT abdomen and pelvis from 03/09/2017. CT DOSE (mGy.cm): The estimated cumulative dose is 1992.13 mGy.cm. FINDINGS: Sewing Machine Operator Plastic Zipper topogram: Unremarkable. Thoracic spine: Normal thoracic kyphosis. Vertebral bodies maintain normal height and alignment. Intervertebral disc spaces preserved. No acute fracture or subluxation. No osseous neural foraminal or spinal canal narrowing. Lumbar spine: Normal lumbar lordosis. Vertebral bodies maintain normal height and alignment. Intervertebral disc spaces preserved. No acute fracture or subluxation. No osseous neural foraminal or spinal canal narrowing. Paraspinal soft tissues within normal limits. IMPRESSION: 1. No acute osseous injury of the thoracic spine. 2. No acute osseous injury of the lumbar spine. Electronically signed by: Hany Pope M.D. 07/06/2017 2:23 PM Dictated Date/Time: 07/06/2017 2:17 PM
[2017-07-06] MEDS ORDERED: ACETAMINOPHEN IV 100 ML IV STA (14:35)
[2017-07-06] MEDS ORDERED: HYDROmorphone INJ 0.5 MG/0.5 ML SYR IV STA (14:35)
[2017-07-06] MEDS ORDERED: CEFTRIAXONE SOD INJ 1 GM ADDVIAL IV STA (14:36)
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
--- NOTE | 2017-07-06 15:39 | DIAGNOSTIC IMAGING REPORT ---
R HUMERUS MIN 2 VIEWS ROUTINE CLINICAL HISTORY: 31 years-old Female presenting with pain-trauma. TECHNIQUE: Frontal and lateral views of the right humerus were obtained. COMPARISON: None. FINDINGS: Minimally displaced fracture of the greater tubercle. Glenohumeral and acromioclavicular joints remain congruent. Visualized portion of the right lung clear. IMPRESSION: Minimally displaced fracture of the greater tubercle of the humeral head. No subluxation of the humeral head. Electronically signed by: Hany Pope M.D. 07/06/2017 3:38 PM Dictated Date/Time: 07/06/2017 3:38 PM
--- NOTE | 2017-07-06 15:40 | DIAGNOSTIC IMAGING REPORT ---
R FOREARM 2 VIEWS ROUTINE CLINICAL HISTORY: 31 years-old Female presenting with pain-trauma. TECHNIQUE: Frontal and lateral views of the right forearm are obtained. COMPARISON: None. FINDINGS: Elbow joint and radiocarpal articulations intact. No acute fracture or malalignment. No gross evidence of an elbow joint effusion. No radiographic evidence of soft tissue abnormality. IMPRESSION: No acute fracture of the right forearm. Electronically signed by: Hany Pope M.D. 07/06/2017 3:39 PM Dictated Date/Time: 07/06/2017 3:38 PM
--- NOTE | 2017-07-06 15:44 | DIAGNOSTIC IMAGING REPORT ---
R SHOULDER MIN 2 VIEWS ROUTINE CLINICAL HISTORY: 31 years-old Female presenting with pain-trauma. TECHNIQUE: Internal rotation and transscapular Y views of the right shoulder were obtained. COMPARISON: None. FINDINGS: Minimally displaced fracture of the greater tubercle of the humeral head again noted. Glenohumeral and acromioclavicular joints congruent. Evaluation degraded by suboptimal image quality with under penetration. Lobular soft tissue density distends the fat planes along the posterior aspect of the proximal humerus suggesting soft tissue hematoma. However, no hematoma was noted on chest CT performed earlier the same day. IMPRESSION: Redemonstration of minimally displaced fracture of the greater tubercle of the humeral head. Suboptimal image quality limits assessment. Electronically signed by: Hany Pope M.D. 07/06/2017 3:43 PM Dictated Date/Time: 07/06/2017 3:39 PM
[2017-07-06] MEDS ORDERED: KETOROLAC TROMETHAMINE 30 MG/ML VIAL IV STA (15:47)
--- NOTE | 2017-07-06 16:02 | DIAGNOSTIC IMAGING REPORT ---
L FEMUR 2 VIEWS ROUTINE CLINICAL HISTORY: 31 years-old Female presenting with pain-trauma. TECHNIQUE: Frontal and lateral views of the left femur were obtained. COMPARISON: None. FINDINGS: Left hip joint congruent. Knee joint congruent. No acute fracture or malalignment. Urinary bladder distended and opacified with excreted contrast. No radiographic evidence of soft tissue abnormality. IMPRESSION: No acute osseous injury of the left femur. Electronically signed by: Hany Pope M.D. 07/06/2017 4:01 PM Dictated Date/Time: 07/06/2017 3:59 PM
[2017-07-06] MEDS ORDERED: OXYCODONE HCL IR 5 MG TAB (IMMEDIATE RELEASE) PO STA (17:39)
[2017-07-06] MEDS ORDERED: CEPH500C PO (18:03)
[2017-07-06] MEDS ORDERED: IBUP-1451 PO (18:03)
[2017-07-06] MEDS ORDERED: OXYC1CAP5 PO (18:36)
[2017-07-06 19:00] VITALS: BP 148/102; PULSE 82; O2SAT 96
== END 2017-07-06 19:02 | disposition home or self-care (01) ==
LOC: C.EDB 11:24 → C.EDC 19:02
DX: S42.251A Displaced fracture of greater tuberosity of right humerus, initial encounter for closed fracture (principal); T14.8XXA Other injury of unspecified body region, initial encounter; V48.1XXA Car passenger injured in noncollision transport accident in nontraffic accident, initial encounter; N39.0 Urinary tract infection, site not specified; E03.9 Hypothyroidism, unspecified; F90.9 Attention-deficit hyperactivity disorder, unspecified type; F17.200 Nicotine dependence, unspecified, uncomplicated; Z87.19 Personal history of other diseases of the digestive system; Z79.899 Other long term (current) drug therapy; Z88.5 Allergy status to narcotic agent; Z88.6 Allergy status to analgesic agent; Z83.3 Family history of diabetes mellitus; Z80.9 Family history of malignant neoplasm, unspecified; Z82.49 Family history of ischemic heart disease and other diseases of the circulatory system

== ENCOUNTER → 2017-07-21 | Day surgery (SDC) | payer SELFPAY ==
[2017-07-17 07:51] VITALS: BMI 28.0
[~2017-07-21] VITALS: Ht 162.6 cm; Wt 78.5 kg
[~2017-07-21] MED LIST changes: +ATROPINE SULFATE 0.1 MG/ML 5ML SYR IV PRN; +BUPIVACAINE/EPINEPHRINE 0.25% 1:200,000 30 ML VIAL ONE; +CEFAZOLIN 2000MG IV PUSH 10 ML IV SCH; +DEXAMETHASONE SOD INJ 4 MG/ML VIAL ONE; +EpHEDrine SULFATE INJ 50 MG/ML AMP IV PRN; +FENTANYL CITRATE INJ 50 MCG/1 ML 2 ML VIAL IV PRN; +FENTANYL CITRATE INJ 50 MCG/1 ML 2 ML VIAL ONE; +LACTATED RINGER'S 1000ML 1,000 ML IV SCH; +LIDOCAINE HCL 2% 2 ML VIAL (20MG/ML) ONE; +MIDAZOLAM HCL 1 MG/ML 2ML VIAL ONE; +MoRPHine SULFATE 2 MG/ML CARP IV PRN; +MoRPHine SULFATE 4 MG/ML 1 ML CARP\\VIAL IV PRN; +ONDANSETRON INJ 2 MG/ML 2 ML VIAL IV PRN; +ONDANSETRON INJ 2 MG/ML 2 ML VIAL ONE; +OXYC1TAB3 PO; +OXYCODONE/ACETAMINOPHEN 5-325 TAB PO PRN; -PENI-82 PO; +PROMETHAZINE HCL INJ 6.25 MG in SODIUM CHLORIDE 0.9% 50ML 50 ML IV PRN; +PROPOFOL IV EMULSION 10 MG/ML 20 ML VIAL IV ONE; +SODIUM CHLORIDE 0.9% 1000ML 1,000 ML IV SCH; -TRAM-10 PO; +TRAMADOL HCL 50 MG TAB PO STA
[2017-07-21 10:23] VITALS: Ht 162.6 cm; Wt 78.5 kg
--- NOTE | 2017-07-21 13:14 | History & Physical Bridge - SC ---
H&P Re-Evaluation Bridge Note: I have examined the patient, reviewed the History & Physical and in the interval since the performance of the History & Physical I have noted the following changes of clinical significance: No changes noted
--- NOTE | 2017-07-21 15:42 | [facility] Post Operative Brief Note ---
Immediate Operative Summary Operative Date Jul 21, 2017. Pre-Operative Diagnosis Right Greater Tuberosity Fracture Post-Operative Diagnosis same as preop Procedure(s) Performed Right Greater Tuberosity Fracture Open Reduction Internal Fixation Surgeon Dr. Salas Senior Support Analyst Surgeon(s) PJ Barnes Estimated Blood Loss 50ML Findings Comminuted fracture reduced and fixed with double row suture repair Specimens none per surgeon Drains None Anesthesia General with interscalene block Complication(s) None Disposition Recovery Room / PACU
--- NOTE | 2017-07-21 15:42 | [facility] Operative Report ---
Operative Report Operative Date Jul 21, 2017. Pre-Operative Diagnosis Right Greater Tuberosity Fracture Post-Operative Diagnosis same as preop Procedure(s) Performed Right Greater Tuberosity Fracture Open Reduction Internal Fixation Surgeon Dr. Salas Purchasing Manager Surgeon(s) PJ Barnes Estimated Blood Loss 50ML Findings none Specimens none per surgeon Complication(s) None Disposition Recovery Room / PACU I attest to the content of the Intraoperative Record and any orders documented therein. Any exceptions are noted below.
--- NOTE | 2017-07-21 15:48 | Discharge Instructions ---
Discharge Instructions Date of Service Jul 21, 2017. Admission Reason for Admission: Right Greater Tuberosity Fracture Discharge Discharge Diagnosis / Problem: Right Greater Tuberosity Fracture Discharge Goals Goal(s): Decrease discomfort, Improve function, Increase independence Activity Recommendations Activity Limitations: as noted below Lifting Limitations: until after follow-up appointment Exercise/Sports Limitations: none May Resume Sexual Activity: after follow-up appointment Shower/Bathe: tomorrow, keep incision dry Driving or Machine Use: Not until cleared by orthopedic surgeon. Weightbearing Status: Right non-weightbearing (upper extremity) . Instructions / Follow-Up Instructions / Follow-Up Post-operative Instructions Dear Patient and Family/Friends, Before you are discharged from the hospital, it is important to know what to expect when you get home after surgery. To that end, we have created this sheet of discharge instructions which covers many commonly asked questions. Make sure you go through this sheet in its entirety with your nurse before you are discharged. Please note that we will go over the specifics of your surgery and recovery when you return for your first post-operative visit. Sincerely, Dr. Salas Pain Expect to be in a fair amount of pain after surgery. Remember, our goal is not to eliminate your pain, but to make it tolerable. It is a good idea to stay ahead of your pain by taking the medications you were prescribed once you get home. Typically, the pain starts improving 3-7 days after surgery. You should start weaning off the narcotic pain medication (oxycodone, hydrocodone, hydromorphone, morphine) as soon as your pain improves. Please call our office if your pain is not adequately controlled. Ice Ice your operative site at least 5 times a day for 15-30 minutes at a time. Make sure you have a thin cloth between the ice or cooling unit and your skin to prevent larson bite. This is especially important if you received a nerve block. Continue icing your operative site for the first 5-7 days after surgery , then as needed. Diet/Nausea/Vomiting Start by drinking clear liquids and eating crackers. If you can tolerate this, then you may resume your normal diet. If you feel nauseated or vomit, take Zofran/ondansetron (if prescribed). Please call our office if you have intractable nausea or vomiting, or, if after hours, you may go to the Emergency Room for help. Constipation Constipation is a common side effect of narcotic pain medication. If you have not had a bowel movement within 2 days after surgery, we recommend purchasing an over the counter laxative such as Milk of Magnesia, Dulcolax, or Miralax from a local pharmacy, and taking it as instructed. Call our clinic if any questions. Slings and Braces If you were placed in a sling or brace, it must be worn at all times, including sleep. You may remove your sling or brace for physical therapy, home exercises , and showering. The length of time you will be in your brace and range of motion restrictions depends on what surgery you had; these details will be reviewed at your first post-operative appointment. Nerve block The anesthesia team sometimes places a nerve block to help with post-operative pain control. This results in significant numbness and inability to move the extremity. The nerve block usually wears off in 8-12 hours, but sometimes can last up to 24 hours. Please call our office if you are still unable to move your extremity after 24 hours, unless you received a pain pump to take home. Nerve blocks typically wear off quickly, so start taking pain medication as soon as you start feeling soreness near your surgical site. Weight bearing and Range of Motion. Do not bear any weight through your operative extremity immediately after surgery. If you had upper extremity surgery, do not lift anything with that arm. If you are in a knee brace, keep it locked in place until your follow-up. We will discuss your weight bearing, range of motion, and lifting restrictions in detail at your first post-operative appointment. Continuous Passive Motion (CPM) Machine If you were prescribed a CPM machine, it will start after your first post- operative appointment, at which time we will give you instructions on the range of motion settings and duration of treatment Physical therapy You will be given a prescription for physical therapy or occupational therapy at your first post-operative appointment. Typically, patients start therapy within 1 week of surgery. You can begin light pendulum swings with Right arm. Also it is important to actively move your elbow, wrist, hand/fingers to prevent stiffness. Wound care and showering We will inspect your wound at your first post-operative visit, and may do a dressing change at that time. Most patients will be in a water-proof dressing that is removed 14 days after surgery. It is normal to see some dried blood on the dressing. Do not remove your dressing, paper strips or sutures yourself unless you are given permission. Showering is allowed the day after surgery. Do not scrub or remove any dressings. The wound should not be submerged underwater (i.e. in a bathtub or pool) until 4 weeks after surgery TALA stockings If you were given white stockings, these are to be worn at all times except to shower (on both legs) for the first 2 weeks after surgery. Driving You may not drive while taking narcotic pain medication or while in a cast, splint, sling or brace. You, the patient, need to make the final determination about when you are safe to drive, however, the earliest you may consider driving after surgery is below: Hand/Wrist/Elbow Surgery: 3 days Shoulder Surgery: 2 weeks Hip,/Knee/Ankle Surgery: 4 weeks Fracture repair: 6 weeks Return to Work Your return to work depends on what surgery was done and what type of work you do. Please bring any paperwork your employer needs completed to your first post -operative visit. Also, bring a description of your job duties, as this helps us to understand what risks you may face at work. Travel Avoid long distance travel (greater than 1 hour) in airplanes and cars for the first 6 weeks after surgery. If you must travel, you need to have a Doppler ultrasound done before you travel to rule out a blood clot in your legs. Follow-up You should have a follow-up appointment already scheduled 1-2 days after surgery. If not, please contact our office to make this appointment before you leave the hospital. When to call the office It is normal to have swelling and bruising in the limb that was operated on. This will improve with time. It is also normal to have fevers for the first 2 days after surgery. Reasons you should call your doctor include: Uncontrolled pain; Nausea, vomiting, or constipation that does not improve with medication; Fevers over 101.5, chills, sweats; Drainage or bleeding from the wound; Foul odor; Spreading areas of redness; Any other concerns Current Hospital Diet Patient's current hospital diet: Discharge Diet Recommended Diet: Regular Diet Procedures Procedures Performed: Right Greater Tuberosity Fracture Open Reduction Internal Fixation Pending Studies Studies pending at discharge: no Medical Emergencies . Who to Call and When: Medical Emergencies: If at any time you feel your situation is an emergency, please call 911 immediately. . Non-Emergent Contact Non-Emergency issues call your: Primary Care Provider Call Non-Emergent contact if: you have a fever, temperature is above 101.5, your pain is not controlled, wound has increased drainage, wound has increased redness, you have any medication questions . "Provider Documentation" section prepared by [address]. . VTE Core Measure Inpt VTE Proph given/why not?: Other Anticoagulation (EC Aspirin 81 mg), T.E.Angela Cade [place] Drug Monitoring Program Search Results: patient reviewed within database, no issues identified, see additional documentation
[2017-07-21 16:14] VITALS: TEMP 36.6
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
[2017-07-21 16:55] VITALS: BP 134/91; PULSE 95; O2SAT 96
--- NOTE | 2017-07-21 16:56 | Anesthesia Progress Nt - [facility] ---
Anesthesia Post Op Note Date & Time Jul 21, 2017 at 16:56 Vital Signs Pain Intensity: 0 Vital Signs Past 12 Hours Date Time Temp Pulse Resp B/P (MAP) Pulse Ox O2 Delivery O2 Flow Rate FiO2 07/21/17 16:14 36.6 105 20 124/88 (100) 95 Room Air 07/21/17 16:11 128/77 07/21/17 16:10 92 24 07/21/17 16:10 93 24 93 07/21/17 16:09 90 24 07/21/17 16:09 90 24 95 07/21/17 16:08 37.2 88 20 128/77 95 Room Air 07/21/17 16:06 135/83 07/21/17 16:04 87 20 95 07/21/17 16:04 87 20 07/21/17 16:03 97 24 07/21/17 16:03 92 24 96 07/21/17 16:02 89 22 07/21/17 16:02 88 22 97 07/21/17 16:01 118/88 07/21/17 15:58 92 18 98 07/21/17 15:58 93 18 07/21/17 15:57 89 22 07/21/17 15:57 89 22 97 07/21/17 15:56 125/78 07/21/17 15:54 97 20 97 07/21/17 15:54 97 20 07/21/17 15:53 93 22 96 07/21/17 15:53 92 22 07/21/17 15:51 107/85 07/21/17 15:48 89 18 07/21/17 15:48 90 18 99 07/21/17 15:46 118/79 07/21/17 15:43 101 20 07/21/17 15:43 101 20 94 07/21/17 15:41 37.0 89 14 141/83 98 Mask 8 07/21/17 15:41 141/83 07/21/17 13:13 88 14 99 07/21/17 13:13 89 14 07/21/17 13:12 94 19 98 07/21/17 13:12 92 19 07/21/17 13:11 113/64 07/21/17 13:07 99 15 98 07/21/17 13:07 99 15 07/21/17 13:06 86 23 144/91 98 07/21/17 13:06 87 23 07/21/17 13:01 74 15 07/21/17 13:01 74 15 127/88 99 07/21/17 12:56 92 23 139/93 99 07/21/17 12:56 92 23 07/21/17 12:55 128/91 07/21/17 12:51 69 24 07/21/17 12:51 24 07/21/17 12:46 24 07/21/17 12:46 75 24 07/21/17 12:41 20 07/21/17 12:41 81 20 07/21/17 12:36 14 07/21/17 12:36 78 14 07/21/17 12:31 73 16 07/21/17 12:31 16 07/21/17 09:38 36.5 64 16 132/96 (108) 98 Room Air Notes Mental Status: alert / awake / arousable, participated in evaluation Pt Amnestic to Procedure: Yes Nausea / Vomiting: adequately controlled Pain: adequately controlled Airway Patency, RR, SpO2: stable & adequate BP & HR: stable & adequate Hydration State: stable & adequate Anesthetic Complications: no major complications apparent Block working well in pacu
== END | disposition home or self-care (01) ==
LOC: X.SURG 09:19
PROVIDERS: ATTEND Orthopaedic Surgery
DX: S42.251A Displaced fracture of greater tuberosity of right humerus, initial encounter for closed fracture (principal); V89.9XXA Person injured in unspecified vehicle accident, initial encounter

== ENCOUNTER → 2017-08-07 | Outpatient (CLI) | payer OTHER ==
[~2017-08-07] MED LIST changes: -ATROPINE SULFATE 0.1 MG/ML 5ML SYR IV PRN; -BUPIVACAINE/EPINEPHRINE 0.25% 1:200,000 30 ML VIAL ONE; -CEFAZOLIN 2000MG IV PUSH 10 ML IV SCH; -DEXAMETHASONE SOD INJ 4 MG/ML VIAL ONE; -EpHEDrine SULFATE INJ 50 MG/ML AMP IV PRN; -FENTANYL CITRATE INJ 50 MCG/1 ML 2 ML VIAL IV PRN; -FENTANYL CITRATE INJ 50 MCG/1 ML 2 ML VIAL ONE; -LACTATED RINGER'S 1000ML 1,000 ML IV SCH; -LIDOCAINE HCL 2% 2 ML VIAL (20MG/ML) ONE; -MIDAZOLAM HCL 1 MG/ML 2ML VIAL ONE; -MoRPHine SULFATE 2 MG/ML CARP IV PRN; -MoRPHine SULFATE 4 MG/ML 1 ML CARP\\VIAL IV PRN; -ONDANSETRON INJ 2 MG/ML 2 ML VIAL IV PRN; -ONDANSETRON INJ 2 MG/ML 2 ML VIAL ONE; -OXYCODONE/ACETAMINOPHEN 5-325 TAB PO PRN; -PROMETHAZINE HCL INJ 6.25 MG in SODIUM CHLORIDE 0.9% 50ML 50 ML IV PRN; -PROPOFOL IV EMULSION 10 MG/ML 20 ML VIAL IV ONE; -SODIUM CHLORIDE 0.9% 1000ML 1,000 ML IV SCH; -TRAMADOL HCL 50 MG TAB PO STA
== END | disposition home or self-care (01) ==
LOC: C.RDSM 11:00
PROVIDERS: ATTEND Orthopaedic Surgery
DX: Z96.7 Presence of other bone and tendon implants (principal)

== ENCOUNTER → 2017-09-02 | Outpatient (CLI) | payer OTHER | END | disposition home or self-care (01) | LOC: C.RDSM 11:54 | PROVIDERS: ATTEND Orthopaedic Surgery | DX: S42.91XA Fracture of right shoulder girdle, part unspecified, initial encounter for closed fracture (principal); X58.XXXA Exposure to other specified factors, initial encounter ==

== ENCOUNTER 2017-10-21 13:57 | Emergency (ER) | payer OTHER ==
[~2017-10-21] VITALS: Ht 162.6 cm; Wt 85.0 kg
[2017-10-21 14:05] VITALS: Ht 162.6 cm; Wt 85.0 kg
[2017-10-21 15:49] VITALS: TEMP 36.5
--- NOTE | 2017-10-21 16:16 | EMERGENCY ROOM VISIT NOTE ---
History Report prepared by Deepak: Marty Dhaliwal Under the Supervision of: Dr. Thiago Bhandari M.D. First contact with patient: 15:47 Chief Complaint: ILLNESS Stated Complaint: FATIGUE,WEAKNESS,STOMACH AND RIGHT SIDE PAIN History of Present Illness The patient is a 32 year old female who presents to the Emergency Room with complaints of a worsening illness for the past week. The patient states that for the past week she has had a cold, lost her voice, and in the last 24 hours she has been fatigued and weak. She additionally states that she is having some nausea, abdominal cramping, some flank soreness, and difficulty with urination. She denies any cough, hematuria, fever, vaginal bleeding, vaginal discharge, vomiting, and diarrhea. The patient has a history of hysterectomy. The patient denies any other medical problems other than ADHD which she takes Adderall for. Source of History: patient Onset: a week ago Position: other (global) Quality: other (illness) Timing: worsening Associated Symptoms: + chest pain (soreness), + nausea, + abdominal pain, + urinary symptoms (difficulty urinating), No fevers, No cough, No vomiting, No diarrhea Review of Systems See HPI for pertinent positives and negatives. A total of ten systems were reviewed and were otherwise negative. Past Medical & Surgical Medical Problems: (1) Acute gastroenteritis (2) Attention-Deficit Hyperactivity Disorder, Unspecified Type (3) Demyelinating Disease Of Central Nervous System, Unspecified (4) Hypothyroidism Nos (5) Tobacco Use Disorder Family History Diabetes mellitus FH: cancer Hypertension Social History Smoking Status: Never Smoker Alcohol Use: none Drug Use: none Marital Status: single Housing Status: lives with family Occupation Status: employed Current/Historical Medications Scheduled Bupropion HCl (Bupropion HCl Sr), 150 MG PO DAILY Sulfa/Trimethoprim (Bactrim Ds 800MG/160MG), 1 TAB PO BID Scheduled PRN Amphetamine-Dextroamphetamine 20MG (Adderall 20MG), 20 MG PO BID PRN for When Working Allergies Coded Allergies: Codeine (Verified Allergy, Unknown, SWELLING AND DIFFICULTY BREATHING, ) Morphine (Verified Allergy, Unknown, swelling AND DIFFICULTY BREATHING, ) Physical Exam Vital Signs Date Time Temp Pulse Resp B/P (MAP) Pulse Ox O2 Delivery O2 Flow Rate FiO2 10/21/17 18:41 65 18 101/61 96 Room Air 10/21/17 17:47 77 18 97/59 96 Room Air 10/21/17 15:49 36.5 78 18 126/86 100 Room Air 10/21/17 14:05 36.6 79 18 123/83 100 Physical Exam Physical Exam GENERAL: She is oriented to person, place, and time. She appears well- developed and well-nourished. She does not appear distressed. ____ HENT: Exam performed. Head: Normocephalic and atraumatic. Right Ear: External ear normal. No mastoid tenderness. Left Ear: External ear normal. No mastoid tenderness. Mouth/Throat: The oropharynx is clear and moist. No trismus in the jaw. No dental abscesses or uvula swelling. No oropharyngeal exudate or tonsillar abscesses. ____ EYES: Conjunctivae and EOM are normal. Pupils are equal, round, and reactive to light. Right eye exhibits no discharge. Left eye exhibits no discharge. No scleral icterus. ____ NECK: Normal range of motion. Neck supple. No JVD present. No spinous process tenderness present. No carotid bruit present. No rigidity. No tracheal deviation and normal range of motion present. No Brudzinski's sign and no Kernig 's sign noted. ____ CV: Normal rate, regular rhythm, normal heart sounds and intact distal pulses. There is no peripheral edema. Palpable radial pulses bue. ____ PULM/CHEST: Effort normal and breath sounds normal. No respiratory distress. No stridor. She has no wheezes. She has no rales. Chest Wall: She exhibits no tenderness. ____ ABD: There is some right sided CVA tenderness. The abdomen is soft. Bowel sounds are normal. She has no distension. No mass is present. There is no rebound, no guarding, no Pérez's sign and no tenderness at McBurney's point. Rovsig negative MUSC/SKEL: Normal range of motion. There is no peripheral edema, tenderness or deformity. LYMPH: No cervical adenopathy. ____ NEURO: She is alert and oriented to person, place, and time. She has normal strength. No cranial nerve deficit or sensory deficit. Coordination and gait normal. GCS eye subscore is 4. GCS verbal subscore is 5. GCS motor subscore is 6. cerbellar tests wnl. ____ SKIN: Skin is warm and dry. She is not diaphoretic. ____ PSYCH: She has a normal mood and affect. Her behavior is normal. Judgment and thought content normal. ____ Medical Decision & Procedures ER Provider Diagnostic Interpretation: Radiology results as stated below per my review and radiologist interpretation: CHEST 2 VIEWS ROUTINE CLINICAL HISTORY: cough dyspnea COMPARISON STUDY: 04/15/2017 FINDINGS: The bones soft tissues and hemidiaphragms are normal. The cardiomediastinal silhouette is normal. The lungs are clear. The pulmonary vasculature is normal. IMPRESSION: Negative chest. The above report was generated using voice recognition software. It may contain grammatical, syntax or spelling errors. Electronically signed by: Richard Osorio M.D. 10/21/2017 5:14 PM Dictated Date/Time: 10/21/2017 5:[address] OF THE ABDOMEN AND PELVIS WITHOUT CONTRAST, STONE PROTOCOL CLINICAL HISTORY: Right costovertebral angle tenderness. Evaluate for stone. COMPARISON STUDY: CT of the abdomen and pelvis July 06, 2017. TECHNIQUE: Helical axial images of the abdomen and pelvis were obtained without IV or oral contrast according to renal stone protocol. A dose lowering technique was utilized adhering to the principles of ALARA. FINDINGS: A 4 mm left lower lobe nodule is unchanged since CT of August 02, 2016. This is likely benign. No renal, ureteral or bladder calculi are present. There is no hydronephrosis or hydroureter. There is no perinephric infiltration. Evaluation of the remainder of the abdomen and pelvis is suboptimal on this unenhanced exam. There is a small amount gas within the bladder. Unenhanced images of the liver, spleen, adrenal glands and pancreas are unremarkable. There is no significant biliary ductal dilatation status post cholecystectomy. There is no peripancreatic infiltration. There is no evidence for a bowel obstruction. The appendix is not visualized. No suspicious osseous lesions are present. There is no lymphadenopathy or ascites. IMPRESSION: 1. No urinary calculi or hydronephrosis. 2. No acute process within the abdomen or pelvis on unenhanced exam. 3. Small amount of gas within the bladder, a nonspecific finding which could be correlated with recent instrumentation. Electronically signed by: Mir Singh M.D. 10/21/2017 5:46 PM Dictated Date/Time: 10/21/2017 5:39 PM Laboratory Results 10/21/17 16:35 Red Blood Count 4.37, Mean Corpuscular Volume 87.9, Mean Corpuscular Hemoglobin 30.2, Mean Corpuscular Hemoglobin Concent 34.4, Mean Platelet Volume 9.6, Neutrophils (%) (Auto) 33.7, Lymphocytes (%) (Auto) 55.3, Monocytes (%) (Auto) 7.5, Eosinophils (%) (Auto) 3.1, Basophils (%) (Auto) 0.2, Neutrophils # (Auto) 1.76, Lymphocytes # (Auto) 2.88, Monocytes # (Auto) 0.39, Eosinophils # (Auto) 0.16, Basophils # (Auto) 0.01 10/21/17 16:35 Test 10/21/17 16:00 10/21/17 16:35 Urine Color YELLOW Urine Appearance CLOUDY (CLEAR) Urine pH 5.0 (4.5-7.5) Urine Specific [place] 1.023 (1.000-1.030) Urine Protein NEG (NEG) Urine Glucose (UA) NEG (NEG) Urine Ketones NEG (NEG) Urine Occult Blood NEG (NEG) Urine Nitrite POS (NEG) Urine Bilirubin NEG (NEG) Urine Urobilinogen NEG (NEG) Urine Leukocyte Esterase SMALL (NEG) Urine WBC (Auto) >30 /hpf (0-5) Urine RBC (Auto) 0-4 /hpf (0-4) Urine Hyaline Casts (Auto) 5-10 /lpf (0-5) Urine Epithelial Cells (Auto) 10-20 /lpf (0-5) Urine Bacteria (Auto) 4+ (NEG) Urine Crystals CALCIUM OXALATE (NONE Urine Test NEG (NEG) White Blood Count 5.21 K/uL (4.8-10.8) Red Blood Count 4.37 M/uL (4.2-5.4) Hemoglobin 13.2 g/dL (12.0-16.0) Hematocrit 38.4 % (37-47) Mean Corpuscular Volume 87.9 fL (80-100) Mean Corpuscular Hemoglobin 30.2 pg (25-34) Mean Corpuscular Hemoglobin Concent 34.4 g/dl (32-36) Platelet Count 216 K/uL (130-400) Mean Platelet Volume 9.6 fL (7.4-10.4) Neutrophils (%) (Auto) 33.7 % Lymphocytes (%) (Auto) 55.3 % Monocytes (%) (Auto) 7.5 % Eosinophils (%) (Auto) 3.1 % Basophils (%) (Auto) 0.2 % Neutrophils # (Auto) 1.76 K/uL (1.4-6.5) Lymphocytes # (Auto) 2.88 K/uL (1.2-3.4) Monocytes # (Auto) 0.39 K/uL (0.11-0.59) Eosinophils # (Auto) 0.16 K/uL (0-0.5) Basophils # (Auto) 0.01 K/uL (0-0.2) RDW Standard Deviation 40.0 fL (36.4-46.3) RDW Coefficient of Variation 12.5 % (11.5-14.5) Immature Granulocyte % (Auto) 0.2 % Immature Granulocyte # (Auto) 0.01 K/uL (0.00-0.02) Anion Gap 3.0 mmol/L (3-11) Est Creatinine Clear Calc Drug Dose 99.3 ml/min Estimated GFR () 104.3 Estimated GFR (Non- 90.0 BUN/Creatinine Ratio 17.3 (10-20) Calcium Level 8.4 mg/dl (8.5-10.1) Laboratory results reviewed by me Medications Administered Medications (Trade) Dose Ordered Sig/Antoni Route Start Time Stop Time Status Last Admin Dose Admin Sodium Chloride 1,000 ml @ 999 mls/hr Q1H1M STAT IV 10/21/17 16:17 10/21/17 17:17 DC 10/21/17 16:39 999 MLS/HR Ceftriaxone Sodium (Rocephin Inj) 1 gm NOW STAT IV 10/21/17 16:17 10/21/17 16:20 DC 10/21/17 16:40 1 GM Ketorolac Tromethamine (Toradol Inj) 15 mg NOW STAT IV 10/21/17 16:17 10/21/17 16:20 DC 10/21/17 16:40 15 MG ED Course 1602: The patient was evaluated in room A11. A complete history and physical exam was performed. 1617: Toradol 15mg IV, Rocephin 1gm IV, Sodium Chloride 1000 ml @ 999 mls/hr IV 1756: VSS. Serial abdominal exam within normal limits. Patient's blood work is within normal limits. CT scan did not show any acute pathology. The patient will be discharged on antibiotics for a UTI. She will be getting Rocephin. DISCHARGE - Plan of care discussed with patient and questions answered. The patient was given both verbal and printed discharge instructions. The patient verbalized understanding and ability to comply. The patient is to seek outpatient follow up as noted in the discharge instructions. The patient verbalized understanding and ability to comply. The patient is discharged in stable condition. The patient was instructed to return for worsening symptoms. Medical Decision Vital signs stable. Labs within normal limits. Urine shows UTI. Patient was given Rocephin in the emergency department. Serial abdominal exam showed no tenderness to palpation. Patient will be discharged in stable condition with antibiotics for UTI. DISCHARGE - Plan of care discussed with patient and questions answered. The patient was given both verbal and printed discharge instructions. The patient verbalized understanding and ability to comply. The patient is to seek outpatient follow up as noted in the discharge instructions. The patient verbalized understanding and ability to comply. The patient is discharged in stable condition. The patient was instructed to return for worsening symptoms. Medication Reconcilliation Current Medication List: was personally reviewed by me Blood Pressure Screening Patient's blood pressure: Normal blood pressure Impression Primary Impression: UTI (urinary tract infection) Scribe Attestation The scribe's documentation has been prepared under my direction and personally reviewed by me in its entirety. I confirm that the note above accurately reflects all work, treatment, procedures, and medical decision making performed by me. The chart was completed utilizing [employer] Speech voice recognition software. Grammatical errors, random word insertions, pronoun errors, and incomplete sentences are an occasional consequence of this system due to software limitations, ambient noise, and hardware issues. Any formal questions or concerns about the content, text, or information contained within the body of this dictation should be directly addressed to the physician for clarification. Departure Information Dispostion Home / Self-Care Prescriptions Sulfa/Trimethoprim (Bactrim Ds 800MG/160MG) Tab 1 TAB PO BID, #6 TAB Prov: Thiago Bhandari M.D. 10/21/17 Referrals No Doctor, Assigned (PCP) Forms HOME CARE DOCUMENTATION FORM, IMPORTANT VISIT INFORMATION, WORK / SCHOOL INSTRUCTIONS Patient Instructions ED UTI Cystitis Female, My [facility] [address]
[2017-10-21] MEDS ORDERED: SODIUM CHLORIDE 0.9% 1000ML 1,000 ML IV STA (16:17)
[2017-10-21] MEDS ORDERED: KETOROLAC TROMETHAMINE 30 MG/ML VIAL IV STA (16:17)
[2017-10-21] MEDS ORDERED: CEFTRIAXONE SOD INJ 1 GM ADDVIAL IV STA (16:17)
[2017-10-21] MEDS ORDERED: WLLSR150 PO (16:34)
[2017-10-21 16:54] LABS: HEMATOCRIT 38.4 % (37-47); HEMOGLOBIN 13.2 g/dL (12.0-16.0); MEAN CELL VOLUME 87.9 fL (80-100); MEAN CORPUSCULAR HEMOGLOBIN 30.2 pg (25-34); MEAN CORPUSCULAR HGB CONC 34.4 g/dl (32-36); MEAN PLATELET VOLUME 9.6 fL (7.4-10.4); PLATELET COUNT 216 K/uL (130-400); RED CELL DISTRIBUTION WIDTH CV 12.5 % (11.5-14.5); WHITE BLOOD COUNT 5.21 K/uL (4.8-10.8)
[2017-10-21 17:14] LABS: CALCIUM 8.4 mg/dl (8.5-10.1); CREATININE 0.85 mg/dl (0.60-1.20); POTASSIUM 3.6 mmol/L (3.5-5.1)
--- NOTE | 2017-10-21 17:15 | DIAGNOSTIC IMAGING REPORT ---
CHEST 2 VIEWS ROUTINE CLINICAL HISTORY: cough dyspnea COMPARISON STUDY: 04/15/2017 FINDINGS: The bones soft tissues and hemidiaphragms are normal. The cardiomediastinal silhouette is normal. The lungs are clear. The pulmonary vasculature is normal. IMPRESSION: Negative chest. The above report was generated using voice recognition software. It may contain grammatical, syntax or spelling errors. Electronically signed by: Richard Osorio M.D. 10/21/2017 5:14 PM Dictated Date/Time: 10/21/2017 5:13 PM
[2017-10-21 17:32] LABS: BASO % 0.2 %; BASO ABS # 0.01 K/uL (0-0.2); EOS % 3.1 %; EOS ABS # 0.16 K/uL (0-0.5); IG# 0.01 K/uL (0.00-0.02); LYMPH % 55.3 %; LYMPH ABS # 2.88 K/uL (1.2-3.4); MONO % 7.5 %; MONO ABS # 0.39 K/uL (0.11-0.59); NEUT % 33.7 %; NEUT ABS # 1.76 K/uL (1.4-6.5)
--- NOTE | 2017-10-21 17:47 | DIAGNOSTIC IMAGING REPORT ---
CT OF THE ABDOMEN AND PELVIS WITHOUT CONTRAST, STONE PROTOCOL CLINICAL HISTORY: Right costovertebral angle tenderness. Evaluate for stone. COMPARISON STUDY: CT of the abdomen and pelvis July 06, 2017. TECHNIQUE: Helical axial images of the abdomen and pelvis were obtained without IV or oral contrast according to renal stone protocol. A dose lowering technique was utilized adhering to the principles of ALARA. FINDINGS: A 4 mm left lower lobe nodule is unchanged since CT of August 02, 2016. This is likely benign. No renal, ureteral or bladder calculi are present. There is no hydronephrosis or hydroureter. There is no perinephric infiltration. Evaluation of the remainder of the abdomen and pelvis is suboptimal on this unenhanced exam. There is a small amount gas within the bladder. Unenhanced images of the liver, spleen, adrenal glands and pancreas are unremarkable. There is no significant biliary ductal dilatation status post cholecystectomy. There is no peripancreatic infiltration. There is no evidence for a bowel obstruction. The appendix is not visualized. No suspicious osseous lesions are present. There is no lymphadenopathy or ascites. IMPRESSION: 1. No urinary calculi or hydronephrosis. 2. No acute process within the abdomen or pelvis on unenhanced exam. 3. Small amount of gas within the bladder, a nonspecific finding which could be correlated with recent instrumentation. Electronically signed by: Mir Singh M.D. 10/21/2017 5:46 PM Dictated Date/Time: 10/21/2017 5:39 PM
[2017-10-21 18:41] VITALS: BP 101/61; PULSE 65; O2SAT 96
[2017-10-21] MEDS ORDERED: SULF800T23 PO (18:48)
--- NOTE | 2017-10-23 12:33 | Pharmacy Progress Note ---
ED Pharmacist Culture FollowUp Date of Service: Oct 23, 2017. Patient was sent home with a prescription for bactrim 1 tab BID X 3 days, which should cover the E. Coli growing from the patient's urine culture.
== END 2017-10-21 18:48 | disposition home or self-care (01) ==
LOC: C.EDB 13:59 → C.EDA 18:48
DX: N39.0 Urinary tract infection, site not specified (principal); R10.9 Unspecified abdominal pain; R53.83 Other fatigue; E03.9 Hypothyroidism, unspecified; F90.9 Attention-deficit hyperactivity disorder, unspecified type